=== PATIENT | male | born 1955 | race Caucasian/White ===

== ENCOUNTER → 2016-09-12 | Outpatient (CLI) | payer BC, OTHER ==
[~2016-09-12] MED LIST: MAGN296S PO; OMEP20TA2 PO; SMTR50T PO
--- NOTE | 2016-09-12 13:55 | Diagnostic Imaging Report ---
Ultrasound of the scrotum. INDICATION: Left scrotal pain. FINDINGS: The right testicle is 4.2 x 2.5 x 2.7 cm. The left testicle is 4 x 2.0 x 3 cm. Both testicles demonstrate homogeneous echotexture with no focal mass. There are arterial and venous waveforms demonstrated in both testicles. There is no hydrocele or varicocele. No solid mass. No hernia is identified upon examination with Valsalva maneuver. IMPRESSION: Unremarkable exam. Dictated by: Dictated on workstation # [id number]
== END ==
LOC: RAD 11:19
PROVIDERS: ATTEND Nurse Practitioner Family
DX: N50.812 Left testicular pain (principal)
CPT/HCPCS: 76870

== ENCOUNTER → 2017-01-10 | Outpatient (CLI) | payer OTHER ==
--- NOTE | 2017-01-11 14:19 | ECHOCARDIOGRAPHY REPORT ---
DATE OF SERVICE: REPORT TITLE: Exercise stress echocardiogram report TEST DATE: 01/10/2017. Baseline heart rate is 67. Baseline blood pressure 130/78. Baseline EKG is sinus rhythm with no ischemic changes. In summary, the patient started exercising with a baseline heart rate, blood pressure and EKG mentioned above. He was able to exercise for 11 minutes on standard [place] protocol. With peak exercise level, EKG was showing minimal nondiagnostic changes. Blood pressure was 160/82. During recovery, heart rate and blood pressure returned to baseline. EKG returned to baseline. Echocardiographic images were acquired and reviewed in the parasternal long axis, parasternal short axis, apical four chamber and apical two chamber views. Review of the images were done with the addition of contrast showing normal left ventricular size with normal contractility with no ischemic changes. IN CONCLUSION: 1. Good exercise tolerance, a total of 11 minutes on standard [place] protocol, total of 12.1 METS, achieving 90% of maximum expected heart rate. 2. Appropriate heart rate and blood pressure response to exercise, returned to baseline during recovery. 3. Minimal nondiagnostic EKG changes with exercise returned to baseline during recovery. 4. Normal echocardiographic images at rest and with peak stress level with no ischemic changes. 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
== END ==
LOC: CARD 11:35
PROVIDERS: ATTEND Internal Medicine Cardiovascular Disease
DX: R00.2 Palpitations (principal); R06.02 Shortness of breath; R00.0 Tachycardia, unspecified; R42 Dizziness and giddiness
CPT/HCPCS: 93306

== ENCOUNTER 2017-02-13 15:25 | Outpatient (CLI) | payer OTHER | END 2017-02-13 15:55 | disposition home or self-care (01) | LOC: SLEEP 15:25 | PROVIDERS: ATTEND Internal Medicine Cardiovascular Disease | DX: G47.33 Obstructive sleep apnea (adult) (pediatric) (principal); I10 Essential (primary) hypertension; I49.9 Cardiac arrhythmia, unspecified ==

== ENCOUNTER → 2017-08-27 | Outpatient (CLI) | payer OTHER ==
--- NOTE | 2017-08-27 18:25 | Diagnostic Imaging Report ---
INDICATION: Heel pain COMPARISON: None FINDINGS: 3 views of the right foot are obtained. No acute fracture, malalignment or osseous destructive process is seen. There is some mild degenerative change of the first MTP joint. There is minimal plantar calcaneal spurring. IMPRESSION: Mild degenerative changes of the first MTP joint and minimal plantar calcaneal spurring. No acute osseous abnormality is demonstrated. Dictated by: Dictated on workstation # [id number]
== END ==
LOC: RAD 16:19
DX: M19.071 Primary osteoarthritis, right ankle and foot (principal)
CPT/HCPCS: 73630

== ENCOUNTER 2017-12-05 11:57 | Outpatient (CLI) | payer OTHER ==
[~2017-12-05] VITALS: Ht 180.3 cm; Wt 120.7 kg
[2017-12-05] MEDS ORDERED: SUMA25TA4 PO (12:06)
== END 2017-12-05 12:07 | disposition home or self-care (01) ==
LOC: PREOP 11:57
PROVIDERS: ATTEND Surgery
DX: Z01.818 Encounter for other preprocedural examination (principal)

== ENCOUNTER 2017-12-07 11:50 | Day surgery (SDC) | payer OTHER ==
[~2017-12-07 11:50] MED LIST changes: +SUMA25TA4 PO
[2017-12-07 11:55] VITALS: BP 137/82
--- OUTSIDE RECORDS SUMMARY | 2017-12-07 11:56 | XMS REPORT | Continuity of Care Document ---
Demographics Preferred Language Unknown Marital Status Unknown Denominational Affiliation Unknown Race Unknown Ethnic Group Unknown Author Author [facility] Address Unknown Phone Unavailable Allergies Active Description Code Type Severity Reaction Onset Reported/Identified Relationship to Patient Clinical Status Yes No Known Drug Allergies [id number] Drug Allergy Unknown N/A 06/20/2012 Medications There is no data. Problems Date Dx Coded Attending Type Code Diagnosis Diagnosed By 06/20/2012 Ot 564.00 UNSPEC CONSTIPATION 06/20/2012 Ot 789.09 ABDOMINAL PAIN, OTHER SPECIFIED SITE 07/02/2012 Ot 532.90 DUODENAL ULCER NOS 07/02/2012 Ot 562.10 DIVERTICULOSIS COLON (W/O MENT OF HEMORR 07/02/2012 Ot 564.00 UNSPEC CONSTIPATION 09/13/2016 SREE WERNER CHARGER OPERATOR Ot N50.812 LEFT TESTICULAR PAIN 09/18/2016 SREE WERNER CHARGER OPERATOR Ot N50.812 LEFT TESTICULAR PAIN 10/20/2016 SREE WERNER CHARGER OPERATOR Ot N50.812 LEFT TESTICULAR PAIN 02/12/2017 JIM SANCHEZ MD Ot R00.0 TACHYCARDIA, UNSPECIFIED 02/12/2017 JIM SANCHEZ MD Ot R00.2 PALPITATIONS 02/12/2017 JIM SANCHEZ MD Ot R06.02 SHORTNESS OF BREATH 02/12/2017 JIM SANCHEZ MD Ot R42 DIZZINESS AND GIDDINESS 02/13/2017 JIM SANCHEZ MD Ot G47.33 OBSTRUCTIVE SLEEP APNEA (ADULT) (PEDIATR 02/13/2017 JIM SANCHEZ MD Ot I10 ESSENTIAL (PRIMARY) HYPERTENSION 02/13/2017 JIM SANCHEZ MD Ot I49.9 CARDIAC ARRHYTHMIA, UNSPECIFIED 04/29/2017 Ot 727.61 ROTATOR CUFF RUPTURE 04/29/2017 Ot 789.00 ABDOMINAL PAIN, UNSPECIFIED SITE 04/29/2017 Ot V72.84 EXAM PRE- OPERATIVE NOS 04/29/2017 DAVEY SANTIAGO, MARK Dougherty Ot 721.3 LUMBOSACRAL SPONDYLOSIS 04/29/2017 SREE WERNER CHARGER OPERATOR Ot N50.812 LEFT TESTICULAR PAIN 04/29/2017 DANIEL MD, BASHAR J Ot R00.0 TACHYCARDIA, UNSPECIFIED 04/29/2017 JIM SANCHEZ MD Ot R00.2 PALPITATIONS 04/29/2017 JIM SANCHEZ MD Ot R06.02 SHORTNESS OF BREATH 04/29/2017 JIM SANCHEZ MD Ot R42 DIZZINESS AND GIDDINESS 04/29/2017 Ot 727.61 ROTATOR CUFF RUPTURE 04/29/2017 Ot 789.00 ABDOMINAL PAIN, UNSPECIFIED SITE 04/29/2017 Ot V72.84 EXAM PRE- OPERATIVE NOS 04/29/2017 MARK MARISCAL MD Ot 721.3 LUMBOSACRAL SPONDYLOSIS 04/29/2017 SREE WERNER CHARGER OPERATOR Ot N50.812 LEFT TESTICULAR PAIN 04/29/2017 JIM SANCHEZ MD Ot R00.0 TACHYCARDIA, UNSPECIFIED 04/29/2017 JIM SANCHEZ MD Ot R00.2 PALPITATIONS 04/29/2017 JIM SANCHEZ MD Ot R06.02 SHORTNESS OF BREATH 04/29/2017 JIM SANCHEZ MD Ot R42 DIZZINESS AND GIDDINESS 08/27/2017 Ot 789.00 ABDOMINAL PAIN, UNSPECIFIED SITE 08/27/2017 Ot V72.84 EXAM PRE- OPERATIVE NOS 08/27/2017 MARK MARISCAL MD Ot 721.3 LUMBOSACRAL SPONDYLOSIS 08/27/2017 SREE WERNER CHARGER OPERATOR Ot N50.812 LEFT TESTICULAR PAIN 08/27/2017 JIM SANCHEZ MD Ot R00.0 TACHYCARDIA, UNSPECIFIED 08/27/2017 JIM SANCHEZ MD Ot R00.2 PALPITATIONS 08/27/2017 JIM SANCHEZ MD Ot R06.02 SHORTNESS OF BREATH 08/27/2017 JIM SANCHEZ MD Ot R42 DIZZINESS AND GIDDINESS 08/28/2017 RADHA SANTIAGO, VIKKI Rodriguez Ot M19.071 PRIMARY OSTEOARTHRITIS, RIGHT ANKLE AND 12/05/2017 Ot 789.00 ABDOMINAL PAIN, UNSPECIFIED SITE 12/05/2017 Ot V72.84 EXAM PRE- OPERATIVE NOS 12/05/2017 MARK MARISCAL MD Ot 721.3 LUMBOSACRAL SPONDYLOSIS 12/05/2017 SREE WERNER CHARGER OPERATOR Ot N50.812 LEFT TESTICULAR PAIN 12/05/2017 JIM SANCHEZ MD Ot R00.0 TACHYCARDIA, UNSPECIFIED 12/05/2017 JIM SANCHEZ MD Ot R00.2 PALPITATIONS 12/05/2017 JIM SANCHEZ MD Ot R06.02 SHORTNESS OF BREATH 12/05/2017 JIM SANCHEZ MD Ot R42 DIZZINESS AND GIDDINESS 12/05/2017 VIKKI GARCIA MD Ot M19.071 PRIMARY OSTEOARTHRITIS, RIGHT ANKLE AND 12/05/2017 Ot 789.00 ABDOMINAL PAIN, UNSPECIFIED SITE 12/05/2017 Ot V72.84 EXAM PRE- OPERATIVE NOS 12/05/2017 DAVEY SANTIAGO, MARK Dougherty Ot 721.3 LUMBOSACRAL SPONDYLOSIS 12/05/2017 SREE WERNER APRN Ot N50.812 LEFT TESTICULAR PAIN 12/05/2017 JIM SANCHEZ MD Ot R00.0 TACHYCARDIA, UNSPECIFIED 12/05/2017 JIM SANCHEZ MD Ot R00.2 PALPITATIONS 12/05/2017 JIM SANCHEZ MD Ot R06.02 SHORTNESS OF BREATH 12/05/2017 JIM SANCHEZ MD Ot R42 DIZZINESS AND GIDDINESS 12/05/2017 VIKKI GARCIA MD Ot M19.071 PRIMARY OSTEOARTHRITIS, RIGHT ANKLE AND 12/06/2017 JACQUELYN SANTIAGO, HO Ot Z01.818 ENCOUNTER FOR OTHER PREPROCEDURAL EXAMIN Procedures There is no data. Results There is no data. Encounters ACCT No. Visit Date/Time Discharge Status Pt. Type Provider Facility Loc./Unit Complaint [id number] 05/02/2012 15:52:00 RECURRING [id number] 12/05/2017 11:57:00 12/05/2017 12:07:00 DIS Outpatient HO VALLADARES MD Via [facility] PREOP COLONOSCOPY [id number] 08/27/2017 16:19:00 08/27/2017 23:59:59 CLS Outpatient VIKKI GARCIA MD [facility] RAD RIGHT FOOT PAIN [id number] 02/13/2017 15:25:00 02/13/2017 15:55:00 DIS Outpatient JIM SANCHEZ MD [facility] SLEEP HARPREET [id number] 01/10/2017 11:35:00 01/10/2017 23:59:59 CLS Outpatient JIM SANCHEZ MD [facility] CARD R00.2;R06.02 [id number] 11/28/2016 16:00:00 11/28/2016 23:59:59 CLS Preadmit JIM SANCHEZ MD [facility] CARD DIZZINESS, PALPITATIONS [id number] 09/12/2016 11:19:00 09/12/2016 23:59:59 CLS Outpatient SREE WERNER APRN [facility] RAD LEFT SCROTUM AND LEFT GROIN PAIN [id number] 02/11/2013 13:04:00 02/11/2013 23:59:59 CLS Outpatient MARK MARISCAL MD [facility] RAD LOW BACK PAIN [id number] 12/07/2017 11:50:00 ACT Outpatient HO VALLADARES MD [facility] ENDO SCREENING [id number] 07/02/2012 07:52:00 Document Registration [id number] 06/27/2012 08:52:00 Document Registration [id number] 06/20/2012 10:01:00 Document Registration [id number] 06/17/2012 11:43:00 Document Registration [id number] 02/22/2012 15:49:00 Document Registration
[2017-12-07] MEDS ORDERED: NS IV 500 ML 500 ML IV PRN (12:02)
[2017-12-07] MEDS ORDERED: fentaNYL INJECTION 100 MCG/2 ML AMP IVP ONE (12:15)
[2017-12-07] MEDS ORDERED: MIDAZOLAM 2 MG/2 ML (VERSED) VIAL IVP ONE (12:15)
[2017-12-07] MEDS ORDERED: LIDOCAINE JELLY 2% (XYLOCAINE) 5 ML TUBE MM PRN (12:15)
--- NOTE | 2017-12-07 12:16 | Conscious Sedation/ASA ---
Conscious Sedation Pre-Proced Time Reviewed: 12:10 ASA Class: 2 Airway Mallampati Classification: (nuiqsut appropriate class) I. II. III, IV Lungs Heart ASA score ASA 1: a normal healthy patient ASA 2: a patient with a mild systemic disease (mid diabetes, controlled hypertension, obesity ASA 3: a patient with a severe systemic disease that limits activity (angina , COPD, prior Myocardial infarction) ASA 4: a patient with an incapacitating disease that is a constant threat to life (CHF, renal failure) ASA 5: a moribund patient not expected to survive 24 hrs. (ruptured aneurysm) ASA 6: a declared brain patient whose organs are being harvested. For emergent operations, add the letter E after the classification Grade 2 Sedation Plan: Analgesia, Amnesia, Plan communicated to team members, Discussed options with patient/fam, Discussed risks with patient/fam Note The patient is an appropriate candidate to undergo the planned procedure, sedation, and anesthesia. The patient immediately re-assessed prior to indication. HO VALLADARES MD Dec 07, 2017 12:16 pm
--- NOTE | 2017-12-07 12:17 | Progress Note-Pre Operative ---
Pre-Operative Progress Note H&P Reviewed The H&P was reviewed, patient examined and no changes noted. Date Seen by Provider: Dec 07, 2017 Time Seen by Provider: 12:10 Date H&P Reviewed: Dec 07, 2017 Time H&P Reviewed: 12:10 Pre-Operative Diagnosis: screening colonoscopy HO VALLADARES MD Dec 07, 2017 12:17 pm
[2017-12-07] MEDS ORDERED: HYDROcodone/APAP 5 MG/325 MG (LORTAB) TAB PO PRN (12:30)
[2017-12-07] MEDS ORDERED: ACETAMINOPHEN 325 MG TABLET PO PRN (12:30)
[2017-12-07] MEDS ORDERED: morphine INJ 10 MG/ML 1ML (SYR OR VIAL) IV PRN (12:30)
[2017-12-07] MEDS ORDERED: ONDANSETRON 4 MG/2 ML (SDV) Z0FRAN IV PRN (12:30)
[2017-12-07] MEDS ORDERED: fentaNYL INJECTION 100 MCG/2 ML AMP ONE ×2 (12:44)
[2017-12-07] MEDS ORDERED: MIDAZOLAM 2 MG/2 ML (VERSED) VIAL ONE ×3 (12:44→12:45)
[2017-12-07 13:45] VITALS: BP 123/65
[2017-12-07 14:02] VITALS: BP 117/63
[2017-12-07 14:06] VITALS: BP 117/63
--- NOTE | 2017-12-07 14:18 | Progress Note-Post Operative ---
Post-Operative Progess Note Surgeon (s)/Manager Operating (s) Surgeon HO VALLADARES MD Manager Operating: none Pre-Operative Diagnosis screening colonoscopy Post-Operative Diagnosis chronic stage 1 ext and int hemorrhoids. Procedure & Operative Findings Date of Procedure 12/07/17 Procedure Performed/Findings Colonoscopy Anesthesia Type CS Estimated Blood Loss Estimated blood loss (mL): minimal Specimens/Packing Specimens Removed none HO VALLADARES MD Dec 07, 2017 2:18 pm
--- NOTE | 2017-12-07 18:27 | OPERATIVE REPORT ---
DATE OF SERVICE: 12/07/2017 ATTENDING PRIMARY CARE PHYSICIAN: Dr. Arango. PREOPERATIVE DIAGNOSIS: Screening colonoscopy. POSTOPERATIVE DIAGNOSES: 1. Screening colonoscopy. 2. Mild chronic stage I external and internal hemorrhoids. PROCEDURE: Colonoscopy. SURGEON: Ho Valladares MD ANESTHESIA: Conscious sedation. ESTIMATED BLOOD LOSS: Minimal. FINDINGS: Mild chronic stage I external and internal hemorrhoids, not actively edematous nor inflamed and no bleeding. The remainder of the colon and rectum were normal. Prostate gland was palpable and appeared normal. DISPOSITION: The patient tolerated the procedure well. INDICATIONS: The patient is a 62-year-old male in need of a screening colonoscopy. His last colonoscopy was 10 years ago and he believes that to be normal. He states for the most part he is doing well and does not report any major issues with diarrhea nor constipation as well as no red blood per rectum nor any dark tarry stools. He also does not report any family history of colon cancer. DESCRIPTION OF PROCEDURE: The patient was brought to the operating room, laid supine on the table. After adequate pain sedating medications and conscious sedation anesthesia, a digital rectal examination was performed. Mild chronic stage I external and internal hemorrhoids were identified, which were not actively edematous nor inflamed and no bleeding. Normal sphincter tone was felt and there were no palpable masses. Prostate gland was palpable and appeared normal. The endoscope was then intubated to the anus and rectum and gently insufflated. The endoscope was then advanced through the valves of [place] of the rectum with no polyps or any neoplasms identified. We then proceeded through the sigmoid colon where no diverticulosis identified. The endoscope was then advanced to the descending, transverse, ascending colon and the cecum. These segments were normal. There were no polyps or any neoplasms identified throughout the colon or rectum. The endoscope was then slowly withdrawn while taking a second look and suctioning of residual air with no additional findings. The patient tolerated the procedure well. We will recommend continued medical management with a high-fiber diet with at least 30 grams of fiber per day as well as at least 64 fluid ounces of water daily to promote soft stools on a daily basis. He does not need another colonoscopy for another 10 years. Job ID: [id number] DocumentID: [id number] Dictated Date: 12/07/2017 13:14:13 Insurance Underwriter Date: 12/07/2017 18:26:11 Dictated By: HO VALLADARES MD
== END 2017-12-07 14:10 | disposition home or self-care (01) ==
LOC: ENDO 11:50
PROVIDERS: ATTEND Surgery
DX: Z12.11 Encounter for screening for malignant neoplasm of colon (principal); K64.0 First degree hemorrhoids

== ENCOUNTER 2018-04-07 12:56 | Observation (INO) | payer OTHER ==
[~2018-04-07] VITALS: Ht 188 cm; Wt 119.1 kg
--- OUTSIDE RECORDS SUMMARY | 2018-04-07 13:03 | XMS REPORT | Continuity of Care Document ---
Demographics Preferred Language Unknown Marital Status Unknown Evangelical Affiliation Unknown Race Unknown Ethnic Group Unknown Author Author [facility] Address Unknown Phone Unavailable Allergies Active Description Code Type Severity Reaction Onset Reported/Identified Relationship to Patient Clinical Status Yes No Known Drug Allergies [id number] Drug Allergy Unknown N/A 12/07/2017 Medications There is no data. Problems Date Dx Coded Attending Type Code Diagnosis Diagnosed By 06/20/2012 Ot 564.00 UNSPEC CONSTIPATION 06/20/2012 Ot 789.09 ABDOMINAL PAIN, OTHER SPECIFIED SITE 07/02/2012 Ot 532.90 DUODENAL ULCER NOS 07/02/2012 Ot 562.10 DIVERTICULOSIS COLON (W/O MENT OF HEMORR 07/02/2012 Ot 564.00 UNSPEC CONSTIPATION 09/13/2016 SREE WERNER DIRECTOR EMERGENCY SERVICES Ot N50.812 LEFT TESTICULAR PAIN 09/18/2016 SREE WERNER DIRECTOR EMERGENCY SERVICES Ot N50.812 LEFT TESTICULAR PAIN 10/20/2016 SREE WERNER DIRECTOR EMERGENCY SERVICES Ot N50.812 LEFT TESTICULAR PAIN 02/12/2017 JIM [...] Ot 721.3 LUMBOSACRAL SPONDYLOSIS 04/29/2017 SREE WERNER DIRECTOR EMERGENCY SERVICES Ot N50.812 LEFT TESTICULAR PAIN 04/29/2017 DANIEL [...] Ot 721.3 LUMBOSACRAL SPONDYLOSIS 04/29/2017 SREE WERNER DIRECTOR EMERGENCY SERVICES Ot N50.812 LEFT TESTICULAR PAIN 04/29/2017 JIM SANCHEZ MD Ot R00.0 TACHYCARDIA, UNSPECIFIED 04/29/2017 JIM SANCHEZ MD Ot R00.2 PALPITATIONS 04/29/2017 JIM SANCHEZ MD Ot R06.02 SHORTNESS OF BREATH 04/29/2017 JIM SANCHEZ MD Ot R42 DIZZINESS AND GIDDINESS 08/27/2017 Ot 789.00 ABDOMINAL PAIN, UNSPECIFIED SITE 08/27/2017 Ot V72.84 EXAM PRE- OPERATIVE NOS 08/27/2017 MARK MARISCAL MD Ot 721.3 LUMBOSACRAL SPONDYLOSIS 08/27/2017 SREE WERNER DIRECTOR EMERGENCY SERVICES Ot N50.812 LEFT TESTICULAR PAIN 08/27/2017 JIM [...] Ot 721.3 LUMBOSACRAL SPONDYLOSIS 12/05/2017 SREE WERNER DIRECTOR EMERGENCY SERVICES Ot N50.812 LEFT TESTICULAR PAIN 12/05/2017 JIM [...] M19.071 PRIMARY OSTEOARTHRITIS, RIGHT ANKLE AND 12/06/2017 HO VALLADARES MD Ot Z01.818 ENCOUNTER FOR OTHER PREPROCEDURAL EXAMIN 12/07/2017 HO VALLADARES MD Ot K64.0 FIRST DEGREE HEMORRHOIDS 12/07/2017 HO VALLADARES MD Ot Z12.11 ENCOUNTER FOR SCREENING FOR MALIGNANT NE 12/12/2017 HO VALLADARES MD Ot K64.0 FIRST DEGREE HEMORRHOIDS 12/12/2017 HO VALLADARES MD Ot Z12.11 ENCOUNTER FOR SCREENING FOR MALIGNANT NE 12/12/2017 HO VALLADARES MD Ot K64.0 FIRST DEGREE HEMORRHOIDS 12/12/2017 HO VALLADARES MD Ot Z12.11 ENCOUNTER FOR SCREENING FOR MALIGNANT NE Procedures There is no data. Results There is no data. Encounters ACCT No. Visit Date/Time Discharge Status Pt. Type Provider Facility Loc./Unit Complaint [id number] 05/02/2012 15:52:00 RECURRING [id number] 12/07/2017 11:50:00 12/07/2017 14:10:00 DIS Outpatient HO VALLADARES MD [facility] ENDO SCREENING [id number] 12/05/2017 11:57:00 12/05/2017 12:07:00 DIS Outpatient HO VALLADARES MD [facility] PREOP COLONOSCOPY [id number] 08/27/2017 16:19:00 08/27/2017 23:59:59 CLS Outpatient VIKKI GARCIA MD [facility] RAD RIGHT FOOT PAIN [id number] 02/13/2017 15:25:00 02/13/2017 15:55:00 DIS Outpatient JIM SANCHEZ MD [facility] SLEEP HARPREET [id number] 01/10/2017 11:35:00 01/10/2017 23:59:59 CLS Outpatient JIM SANCHEZ MD [facility] CARD R00.2;R06.02 [id number] 11/28/2016 16:00:00 11/28/2016 23:59:59 CLS Preadmit JIM SANCHEZ MD [facility] CARD DIZZINESS, PALPITATIONS [id number] 09/12/2016 11:19:00 09/12/2016 23:59:59 CLS Outpatient SREE WERNER APRN [facility] RAD LEFT SCROTUM AND LEFT GROIN PAIN [id number] 02/11/2013 13:04:00 02/11/2013 23:59:59 CLS Outpatient MARK MARISCAL MD [facility] RAD LOW BACK PAIN [id number] 07/02/2012 07:52:00 Document Registration [id number] 06/27/2012 08:52:00 Document Registration [id number] 06/20/2012 10:01:00 Document Registration [id number] 06/17/2012 11:43:00 Document Registration [id number] 02/22/2012 15:49:00 Document Registration
--- NOTE | 2018-04-07 13:27 | Diagnostic Imaging Report ---
INDICATION: Dizziness and shortness of breath. FINDINGS: Lungs demonstrate no focal infiltrate or consolidation. There is no effusion. There is no pneumothorax. Heart size and mediastinal contours appear appropriate without evidence of failure. No acute osseous abnormality demonstrated. IMPRESSION: 1. No radiographic evidence of an acute cardiopulmonary process. Dictated by: Dictated on workstation # [id number]
[2018-04-07 13:33] LABS: BASOPHILS % (AUTO) 0 % (0-10); EOSINOPHILS # (AUTO) 0.1 10^3/uL (0.0-0.3); EOSINOPHILS % (AUTO) 1 % (0-10); HEMATOCRIT 47 % (40-54); LYMPHOCYTES # (AUTO) 1.5 X 10^3 (1.0-4.0); LYMPHOCYTES % (AUTO) 16 % (12-44); MEAN CORPUSCULAR HEMOGLOBIN 30 PG (25-34); MEAN CORPUSCULAR HGB CONC 34 G/DL (32-36); MEAN CORPUSCULAR VOLUME 88 FL (80-99); MEAN PLATELET VOLUME 10.7 FL (7.4-10.4); MONOCYTES # (AUTO) 0.8 X 10^3 (0.0-1.0); MONOCYTES % (AUTO) 9 % (0-12); NEUTROPHILS # (AUTO) 6.8 X 10^3 (1.8-7.8); NEUTROPHILS % (AUTO) 74 % (42-75); PLATELET COUNT 208 10^3/uL (130-400); RED BLOOD COUNT 5.37 10^6/uL (4.35-5.85); RED CELL DISTRIBUTION WIDTH 14.6 % (10.0-14.5); WHITE BLOOD COUNT 9.2 10^3/uL (4.3-11.0)
[2018-04-07 13:52] LABS: ALANINE AMINOTRANSFERASE 26 U/L (0-55); ALBUMIN 4.3 GM/DL (3.2-4.5); ALKALINE PHOSPHATASE 74 U/L (40-136); BILIRUBIN,TOTAL 0.6 MG/DL (0.1-1.0); BUN/CREATININE RATIO 14; CALCIUM 9.5 MG/DL (8.5-10.1); CARBON DIOXIDE 19 MMOL/L (21-32); CHLORIDE 108 MMOL/L (98-107); CREATININE SERUM 1.13 MG/DL (0.60-1.30); GFR ESTIMATED > 60; GLUCOSE 101 MG/DL (70-105); POTASSIUM 4.2 MMOL/L (3.6-5.0); SODIUM 140 MMOL/L (135-145); TOTAL PROTEIN 7.1 GM/DL (6.4-8.2)
[2018-04-07] MEDS ORDERED: RECEIVED CONTRAST (Hold Metformin) IV SCH (14:15)
[2018-04-07] MEDS ORDERED: NS 50 ML (IVPB) BAG IV ONE (14:15)
[2018-04-07] MEDS ORDERED: IOHEXOL 350 MG/ML 150 ML (OMNIPAQUE 350) VIAL IV ONE (14:15)
[2018-04-07] MEDS ORDERED: RIVAROXABAN 15 MG TABLET (XARELTO) PO ONE (15:15)
--- NOTE | 2018-04-07 15:32 | ED General ---
General Chief Complaint: Respiratory Problems Stated Complaint: SOA Nursing Triage Note: pt presents to ed from private auto after seeking care at [facility] and being referred to ed. pt reports soa starting this am that is worse with activity or walking. Nursing Sepsis Screen: No Definite Risk Source of Information: Patient Exam Limitations: No Limitations History of Present Illness Date Seen by Provider: Apr 07, 2018 Time Seen by Provider: 12:58 Initial Comments Patient presents to the emergency room as directed by the [facility] area and he was seen there today for complaints of sudden onset of shortness of breath that started around 09:00. He also reported pain in the right calf that started at the same time. The pain in the calf has no gone. He also felt dizzy. He denies any cough, fever, or chest pain. He has no significant health history. He denies any risk factors for PE such as smoking, recent procedures, or recent travel. Allergies and Home Medications Allergies Coded Allergies: No Known Drug Allergies (Verified , 12/07/17) Home Medications Sumatriptan Succinate 25 Mg Tablet, 25 MG PO UD PRN for MIGRAINE, (Reported) Patient Home Medication List Home Medication List Reviewed: Yes Review of Systems Review of Systems Constitutional: no symptoms reported EENTM: no symptoms reported Respiratory: see HPI Cardiovascular: see HPI Gastrointestinal: no symptoms reported Genitourinary: see HPI Musculoskeletal: no symptoms reported Skin: no symptoms reported Psychiatric/Neurological: No Symptoms Reported Hematologic/Lymphatic: No Symptoms Reported Immunological/Allergic: no symptoms reported Past Qyyiekn-Olfuqq-Bufrlp Hx Past Med/Social Hx: Reviewed Nursing Past Med/Soc Hx Patient Social History Alcohol Use: Denies Use Recreational Drug Use: No Smoking Status: Never a Smoker Recent Foreign Travel: No Contact w/Someone Who Travel: No Recent Infectious Disease Expo: No Recent Hopitalizations: No Physical Abuse: No Sexual Abuse: No Mistreated: No Fear: No Immunizations Up To Date Date of Influenza Vaccine: Dec 25, 2011 Seasonal Allergies Seasonal Allergies: Yes Past Medical History Surgeries: No Respiratory: No Cardiac: Yes High Cholesterol Neurological: Yes Headaches /Migraines Genitourinary: No Gastrointestinal: No Musculoskeletal: No Endocrine: No Cancer: No Psychosocial: No Integumentary: No Blood Disorders: No Family Medical History Cancer Physical Exam Vital Signs Vital Signs - First Documented 04/07/18 13:05 Temp 98.2 Pulse 82 Resp 20 B/P (MAP) 151/104 (120) Pulse Ox 95 Capillary Refill : Less Than 3 Seconds Height, Weight, BMI Height: 6'2.00" Weight: 300lbs. 0.0oz. 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, 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85 10^6/uL Hemoglobin 16.0 13.3-17.7 G/DL Hematocrit 47 40-54 % Mean Corpuscular Volume 88 80-99 FL Mean Corpuscular Hemoglobin 30 25-34 PG Mean Corpuscular Hemoglobin Concent 34 32-36 G/DL Red Cell Distribution Width 14.6 H 10.0-14.5 % Platelet Count 208 130-400 10^3/uL Mean Platelet Volume 10.7 H 7.4-10.4 FL Neutrophils (%) (Auto) 74 42-75 % Lymphocytes (%) (Auto) 16 12-44 % Monocytes (%) (Auto) 9 0-12 % Eosinophils (%) (Auto) 1 0-10 % Basophils (%) (Auto) 0 0-10 % Neutrophils # (Auto) 6.8 1.8-7.8 X 10^3 Lymphocytes # (Auto) 1.5 1.0-4.0 X 10^3 Monocytes # (Auto) 0.8 0.0-1.0 X 10^3 Eosinophils # (Auto) 0.1 0.0-0.3 10^3/uL Basophils # (Auto) 0.0 0.0-0.1 10^3/uL D-Dimer 15.38 H 0.00-0.49 UG/ML Sodium Level 140 135-145 MMOL/L Potassium Level 4.2 3.6-5.0 MMOL/L Chloride Level 108 H 98-107 MMOL/L Carbon Dioxide Level 19 L 21-32 MMOL/L Anion Gap 13 5-14 MMOL/L Blood Urea Nitrogen 16 7-18 MG/DL Creatinine 1.13 0.60-1.30 MG/DL Estimat Glomerular Filtration Rate > 60 BUN/Creatinine Ratio 14 Glucose Level 101 70-105 MG/DL Calcium Level 9.5 8.5-10.1 MG/DL Corrected Calcium 9.3 8.5-10.1 MG/DL Total Bilirubin 0.6 0.1-1.0 MG/DL Aspartate Amino Transf (AST/SGOT) 21 5-34 U/L Alanine Aminotransferase (ALT/SGPT) 26 0-55 U/L Alkaline Phosphatase 74 40-136 U/L B-Type Natriuretic Peptide 19.4 <100.0 PG/ML Total Protein 7.1 6.4-8.2 GM/DL Albumin 4.3 3.2-4.5 GM/DL My Orders Orders - MARY LOU CONROY MD Cbc With Automated Diff (04/07/18 12:58) Comprehensive Metabolic Panel (04/07/18 12:58) Saline Lock/Iv-Start (04/07/18 12:58) Monitor-Rhythm Ecg Trace Only (04/07/18 12:58) Chest Pa/Lat (2 View) (04/07/18 12:58) Ct Angio Chest W (04/07/18 14:00) Iohexol Injection (Omnipaque 350 Mg/Ml 1 (04/07/18 14:15) Contrast Received (Contrast Received) (04/07/18 14:15) Ns (Ivpb) (Sodium Chloride 0.9% Ivpb Bag (04/07/18 14:15) Rivaroxaban Tablet (Xarelto Tablet) (04/07/18 15:15) Medications Given in ED Current Medications Medications Dose Ordered Sig/Florencia Route Start Time Stop Time Status Last Admin Dose Admin Iohexol 125 ml ONCE ONCE IV 04/07/18 14:15 04/07/18 14:16 DC 04/07/18 14:52 125 ML Rivaroxaban 15 mg ONCE ONCE PO 04/07/18 15:15 04/07/18 15:16 DC 04/07/18 15:18 15 MG Sodium Chloride 50 ml ONCE ONCE IV 04/07/18 14:15 04/07/18 14:16 DC 04/07/18 14:52 80 ML Vital Signs/I&O 04/07/18 13:05 Temp 98.2 Pulse 82 Resp 20 B/P (MAP) 151/104 (120) Pulse Ox 95 Capillary Refill : Less Than 3 Seconds Blood Pressure Mean: 120 Progress Note : Progress Note Initial screening was performed with chest x-ray, EKG, and labs. D-dimer was found to be markedly elevated. CT angiogram was performed which revealed significant clot burden bilaterally. Case was discussed with Dr. Haywood who suggested starting Xarelto admitting for observation overnight with an echocardiogram in the morning. Xarelto 15 mg was given in the ER. Patient's oxygen saturation remained above 90 percent throughout his ER stay. Exercise pulse oximetry was performed with patient walking back and forth in the hallway. Oxygen saturation stayed in the 92-95 percent range with exertion. ECG Initial ECG Impression Date: Apr 07, 2018 Initial ECG Impression Time: 13:18 Initial ECG Rate: 86 Initial ECG Rhythm: Normal Sinus Comment Normal sinus rhythm with no ST elevation or depression. No abnormal intervals or axis deviation. Diagnostic Imaging Diagonstic Imaging: Xray Plain Films/CT/US/NM/MRI: chest Comments Chest x-ray viewed by me and report reviewed. See report below: NAME: JEANETTE IZQUIERDO [facility] REC#: [id number] PT STATUS: REG ER : 1955 PHYSICIAN: MARY LOU CONROY MD ADMIT DATE: 04/07/18/ER Draft Date of Exam:04/07/18 CHEST PA/LAT (2 VIEW) INDICATION: Dizziness and shortness of breath. FINDINGS: Lungs demonstrate no focal infiltrate or consolidation. There is no effusion. There is no pneumothorax. Heart size and mediastinal contours appear appropriate without evidence of failure. No acute osseous abnormality demonstrated. IMPRESSION: 1. No radiographic evidence of an acute cardiopulmonary process. Dictated on workstation # [id number] Dict: 04/07/18 1314 Trans: 04/07/18 1326 [id number] Interpreted by: MIKO CRENSHAW MD Diagonstic Imaging: CT Plain Films/CT/US/NM/MRI: chest Comments CT angiogram chest viewed by me and report reviewed. Discussed with radiologist. See report below: Departure Communication (Admissions) Time/Spoke to Admitting Phy: 15:20 Dr. Cabrales Time/Spoke to Consulting Phy: 15:10 Dr. Haywood Impression Primary Impression: Bilateral pulmonary embolism Disposition: ADMITTED INPATIENT Condition: Stable Admissions Decision to Admit Reason: Admit from ER (General) Decision to Admit/Date: Apr 07, 2018 Time/Decision to Admit Time: 15:10 Departure-Patient Inst. Referrals: VIKKI GARCIA MD (PCP/Family) Primary Care Physician MARY LOU CONROY MD Apr 07, 2018 15:32
--- NOTE | 2018-04-07 15:36 | Diagnostic Imaging Report ---
INDICATION: Shortness of air starting this morning. Worsening with activity or walking. EXAMINATION: CTA of the chest, 04/07/2018. FINDINGS: There are diffuse pulmonary emboli extending into the right lower lobe branches extending just distal to the right main pulmonary artery. Several right upper lobe branches also contain pulmonary emboli. On this view, small emboli extend into the right middle lobe branches. The right and left main pulmonary arteries are patent. No central emboli appreciated. Scattered emboli seen throughout the lingular branches on the left and multiple left lower lobe branches as well. A small emboli extends into the peripheral vessels in the left upper lobe, laterally and posteriorly. The thoracic aorta demonstrates no evidence for acute abnormality. No adenopathy appreciated in the chest. The lungs demonstrate two small tiny nodules approximately 1-2 mm in size in the superior segment of the left lower lobe, likely of no significance, too small to characterize. In the visualized upper abdominal structures no acute abnormality is appreciated. IMPRESSION: Multifocal pulmonary emboli seen, bilaterally, throughout all lobes, peripheral in nature. No central emboli are appreciated. Other incidental findings as above. Findings will be called to Dr. Irving by Dr. Banerjee 04/07/2018 at 3:20 p.m. Dictated by: Dictated on workstation # [id number]
--- OUTSIDE RECORDS SUMMARY | 2018-04-07 15:36 | XMS REPORT | Continuity of Care Document ---
Demographics Preferred Language Unknown Marital Status Unknown Scientology Affiliation Unknown Race Unknown Ethnic Group Unknown Author Author [facility] Address Unknown Phone Unavailable Allergies Active Description Code Type Severity Reaction Onset Reported/Identified Relationship to Patient Clinical Status Yes No Known Drug Allergies [id number] Drug Allergy Unknown N/A 12/07/2017 Medications There is no data. 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 Ot N50.812 LEFT TESTICULAR PAIN 02/12/2017 [...] Ot 721.3 LUMBOSACRAL SPONDYLOSIS 04/29/2017 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 Ot N50.812 LEFT TESTICULAR PAIN 04/29/2017 [...] Ot 721.3 LUMBOSACRAL SPONDYLOSIS 04/29/2017 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 Ot N50.812 LEFT TESTICULAR PAIN 04/29/2017 [...] Ot 721.3 LUMBOSACRAL SPONDYLOSIS 08/27/2017 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 Results Test Result Range Complete blood count (CBC) with automated white blood cell (WBC) differential - 04/07/18 13:23 Blood leukocytes automated count (number/volume) 9.2 10*3/uL 4.3-11.0 Blood erythrocytes automated count (number/volume) 5.37 10*6/uL 4.35-5.85 Venous blood hemoglobin measurement (mass/volume) 16.0 g/dL 13.3-17.7 Blood hematocrit (volume fraction) 47 % 40-54 Automated erythrocyte mean corpuscular volume 88 [foz_us] 80-99 Automated erythrocyte mean corpuscular hemoglobin (mass per erythrocyte) 30 pg 25-34 Automated erythrocyte mean corpuscular hemoglobin concentration measurement ( mass/volume) 34 g/dL 32-36 Automated erythrocyte distribution width ratio 14.6 % 10.0-14.5 Automated blood platelet count (count/volume) 208 10*3/uL 130-400 Automated blood platelet mean volume measurement 10.7 [foz_us] 7.4-10.4 Automated blood neutrophils/100 leukocytes 74 % 42-75 Automated blood lymphocytes/100 leukocytes 16 % 12-44 Blood monocytes/100 leukocytes 9 % 0-12 Automated blood eosinophils/100 leukocytes 1 % 0-10 Automated blood basophils/100 leukocytes 0 % 0-10 Blood neutrophils automated count (number/volume) 6.8 10*3 1.8-7.8 Blood lymphocytes automated count (number/volume) 1.5 10*3 1.0-4.0 Blood monocytes automated count (number/volume) 0.8 10*3 0.0-1.0 Automated eosinophil count 0.1 10*3/uL 0.0-0.3 Automated blood basophil count (count/volume) 0.0 10*3/uL 0.0-0.1 Fibrin D-dimer FEU measurement in platelet poor plasma (mass/volume) - 13:23 Fibrin D-dimer FEU measurement in platelet poor plasma (mass/volume) 15.38 ug/mL 0.00-0.49 Comprehensive metabolic panel - 04/07/18 13:23 Serum or plasma sodium measurement (moles/volume) 140 mmol/L 135-145 Serum or plasma potassium measurement (moles/volume) 4.2 mmol/L 3.6-5.0 Serum or plasma chloride measurement (moles/volume) 108 mmol/L 98-107 Carbon dioxide 19 mmol/L 21-32 Serum or plasma anion gap determination (moles/volume) 13 mmol/L 5-14 Serum or plasma urea nitrogen measurement (mass/volume) 16 mg/dL 7-18 Serum or plasma creatinine measurement (mass/volume) 1.13 mg/dL 0.60-1.30 Serum or plasma urea nitrogen/creatinine mass ratio 14 NRG Serum or plasma creatinine measurement with calculation of estimated glomerular filtration rate > NRG Serum or plasma glucose measurement (mass/volume) 101 mg/dL 70-105 Serum or plasma calcium measurement (mass/volume) 9.5 mg/dL 8.5-10.1 Serum or plasma total bilirubin measurement (mass/volume) 0.6 mg/dL 0.1-1.0 Serum or plasma alkaline phosphatase measurement (enzymatic activity/volume) 74 U/L 40-136 Serum or plasma aspartate aminotransferase measurement (enzymatic activity/ volume) 21 U/L 5-34 Serum or plasma alanine aminotransferase measurement (enzymatic activity/volume ) 26 U/L 0-55 Serum or plasma protein measurement (mass/volume) 7.1 g/dL 6.4-8.2 Serum or plasma albumin measurement (mass/volume) 4.3 g/dL 3.2-4.5 CALCIUM CORRECTED 9.3 mg/dL 8.5-10.1 Serum or plasma lithium measurement (moles/volume) - 04/07/18 13:23 BNP level 19.4 pg/mL <100.0 Encounters ACCT No. Visit Date/Time Discharge Status Pt. Type Provider Facility Loc./Unit Complaint [id number] 05/02/2012 15:52:00 RECURRING [id number] 12/07/2017 11:50:00 12/07/2017 14:10:00 DIS Outpatient HO VALLADARES MD [facility] ENDO SCREENING [id number] 12/05/2017 11:57:00 12/05/2017 12:07:00 DIS Outpatient HO VALLADARES MD [facility] PREOP COLONOSCOPY [id number] 08/27/2017 16:19:00 08/27/2017 23:59:59 CLS Outpatient VIKKI GARCIA MD [facility] RAD RIGHT FOOT PAIN [id number] 02/13/2017 15:25:00 02/13/2017 15:55:00 DIS Outpatient JIM SANCHEZ MD [facility] SLEEP HARPREET [id number] 01/10/2017 11:35:00 01/10/2017 23:59:59 CLS Outpatient JIM SANCEHZ MD [facility] CARD R00.2;R06.02 [id number] 11/28/2016 16:00:00 11/28/2016 23:59:59 CLS Preadmit JIM SANCHEZ MD [facility] CARD DIZZINESS, PALPITATIONS [id number] 09/12/2016 11:19:00 09/12/2016 23:59:59 CLS Outpatient SREE WERNER APRN [facility] RAD LEFT SCROTUM AND LEFT GROIN PAIN [id number] 02/11/2013 13:04:00 02/11/2013 23:59:59 CLS Outpatient DAVEY SANTIAGO, MARK Dougherty [facility] RAD LOW BACK PAIN [id number] 04/07/2018 13:33:00 Document Registration [id number] 07/02/2012 07:52:00 Document Registration [id number] 06/27/2012 08:52:00 Document Registration [id number] 06/20/2012 10:01:00 Document Registration [id number] 06/17/2012 11:43:00 Document Registration [id number] 02/22/2012 15:49:00 Document Registration
[2018-04-07 16:00] VITALS: BP 150/86
[2018-04-07] MEDS ORDERED: CATHETER FLUSH 10 ML SYR IV PRN (16:00)
--- NOTE | 2018-04-07 16:00 | NUR ---
JEANETTE IZQUIERDO admitted to room 412-1, with an admitting diagnosis of RUPERTO PE, on 04/07/18 from ED via WC, accompanied by AND STAFF. JEANETTE IZQUIERDO introduced to surroundings, call light, bed controls, phone, TV, temperature control, lights, meal times, smoking policy, visitor policy, side rail policy, bathrooms and showers. JEANETTE IZQUIERDO verbalizes understanding that [facility] is not responsible for the loss or damage to any personal effects or valuables that are kept in the patients posession during their hospitalization. The following Patient Care Plans were discussed with the PT: Discharge Planning, PAIN AND PE. JEANETTE IZQUIERDO verbalizes understanding of Interdisciplinary Patient Education. Patient and/or family were informed about the Rapid Response Team and its purpose.
--- NOTE | 2018-04-07 16:12 | NUR ---
DR. BANGURA AT BEDSIDE.
--- NOTE | 2018-04-07 17:48 | History & Physical-Hospitalist ---
History of Present Illness HPI/Chief Complaint 63 yo wm with hx right calf pain for 2-3 days before presentation. No inciting event. today with increased MAYBERRY and SOA with inability to catch breath.D-Dimer 15. CTA shows bilateral pulmonary Emboli. Source: patient Exam Limitations: no limitations Date Seen 04/07/18 Time Seen by a Provider: 16:15 Attending Physician Karolina Cabrales MD PCP Eddie Arango MD Referring Physician Date of Admission Apr 07, 2018 at 15:20 Home Medications & Allergies Home Medications Reviewed patient Home Medication Reconciliation performed by pharmacy medication reconciliations telecommunication tower technician and/or nursing. Patients Allergies have been reviewed. Allergies Allergies Coded Allergies No Known Drug Allergies (Verified04/07/18) Past Ebqccet-Mwvfrg-Npjoso Hx Past Med/Social Hx: Reviewed Nursing Past Med/Soc Hx Patient Social History Marrital Status: Employed/Student: retired Alcohol Use: Denies Use Recreational Drug Use: No Smoking Status: Never a Smoker Physical Abuse Screen: No Sexual Abuse: No Recent Foreign Travel: No Contact w/other who traveled: No Recent Hopitalizations: No Recent Infectious Disease Expo: No Immunizations Up To Date Date of Influenza Vaccine: Dec 24, 2017 Seasonal Allergies Seasonal Allergies: Yes Past Medical History Cardiac: High Cholesterol Neurological: Headaches /Migraines History of Blood Disorders: No Family History Cancer Review of Systems Constitutional: no symptoms reported EENTM: no symptoms reported Respiratory: dyspnea on exertion, short of breath Cardiovascular: no symptoms reported Gastrointestinal: no symptoms reported Genitourinary: no symptoms reported Musculoskeletal: muscle cramps (right calf) Psychiatric/Neurological: No Symptoms Reported Physical Exam Physical Exam Vital Signs Vital Signs - First Documented 04/07/18 04/07/18 13:05 16:00 Temp 98.2 Pulse 82 Resp 20 B/P (MAP) 151/104 (120) Pulse Ox 95 O2 Delivery Room Air Capillary Refill : Less Than 3 SecondsLess Than 3 Seconds Height, Weight, BMI Height: 6'2.00" Weight: 300lbs. 0.0oz. 136.100115ne; 38.5 BMI Method:Estimated General Appearance: No Apparent Distress HEENT: Normal ENT Inspection Neck: Full Range of Motion, Supple Respiratory: Chest Non Tender, Lungs Clear, Normal Breath Sounds, No Accessory Muscle Use, No Respiratory Distress Cardiovascular: Regular Rate, Rhythm, No Gallop, No JVD, No Murmur, Normal Peripheral Pulses Gastrointestinal: Normal Bowel Sounds, No Organomegaly, Non Tender, Soft Rectal: Deferred Back: Normal Inspection Extremity: Normal Capillary Refill, Normal Inspection, Normal Range of Motion, Non Tender, No Calf Tenderness, No Pedal Edema Neurologic/Psychiatric: Alert, Oriented x3, No Motor/Sensory Deficits, Normal Mood/Affect Skin: Normal Color, Warm/Dry Results Results/Procedures Labs Laboratory Tests 04/07/18 13:23 Patient resulted labs reviewed. Imaging: Reviewed Imaging Films, Reviewed Imaging Report Assessment/Plan Admission Diagnosis Pulmonary emboli obesity Admission Status: Observation Diagnosis/Problems Diagnosis/Problems (1) Bilateral pulmonary embolism Status: Acute (2) Obesity (BMI 30-39.9) Status: Chronic Clinical Quality Measures DVT/VTE Risk/Contraindication: Risk Factor Score Per Nursin RFS Level Per Nursing on Admit: 4+=Very High Copy Copies To 1: EDDIE ARANGO MD, KATHLEEN M MD Apr 07, 2018 17:48
[2018-04-07 20:00] VITALS: BP 132/85
[2018-04-07] MEDS: CATHETER FLUSH 10 ML SYR IV SCH (22:01)
[2018-04-08 00:05] VITALS: BP 117/70
[2018-04-08 04:02] VITALS: BP 127/81
[2018-04-08] MEDS: CATHETER FLUSH 10 ML SYR IV SCH (06:03)
[2018-04-08] MEDS ORDERED: RIVAROXABAN 15 MG TABLET (XARELTO) PO SCH (07:00)
[2018-04-08 08:00] VITALS: BP 145/96
[2018-04-08] MEDS ORDERED: FISH1CAP15 PO (10:56)
[2018-04-08] MEDS ORDERED: MULT-633 PO (10:56)
[2018-04-08] MEDS ORDERED: NIAC500T24 PO (10:56)
[2018-04-08] MEDS ORDERED: SUMA100T2 PO (10:56)
[2018-04-08] MEDS ORDERED: PANT40TA2 PO (11:00)
--- NOTE | 2018-04-08 11:00 | NUR ---
SPOKE WITH THE PATIENT ABOUT HIS MEDICATIONS. HE LISTED WHAT HE IS TAKING AND I VERIFIED WITH [facility]. [facility]: 03-07-18 IMITREX 100MG #9 09-23-17 PROTONIX 40MG DAILY #30 (STATES HE ONLY TAKES PRN) HE TAKES A MTV DAILY, NIACIN DAILY, AND 2 FISH OIL DAILY OTC.
[2018-04-08] MEDS ORDERED: SUMAtriptan 50 MG (IMITREX) TAB PO PRN (11:30)
--- NOTE | 2018-04-08 12:49 | Progress Note-Hospitalist ---
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 He was admitted after he arrived at the emergency room yesterday afternoon complaining of shortness of breath. He had had right calf pain for a couple of days prior to that. CT angiography showed significant bilateral pulmonary emboli greater on the right. He has not exhibited any hypoxia and does not require O2 supplementation. There is no previous history of phlebitis or PE. Given this he would be eligible for discharge however for completeness he should have bilateral lower extremity venous Doppler studies. His d-dimer was 15+. Physical exam: He is alert and oriented. Lungs are clear to auscultation. CV is regular without murmur. The calves appear equal in size and there is no tenderness to palpation. Impression: Bilateral pulmonary emboli. Plan: Bilateral lower extremity venous Doppler studies. Then the patient may be discharged. Copy Copies To 1: VIKKI GARCIA MD, RODNEY K MD Apr 08, 2018 12:49
[2018-04-08] MEDS ORDERED: RIVA15TA PO (13:00)
--- NOTE | 2018-04-08 13:02 | Discharge Instructions ---
Discharge Instructions Patient Instructions Patient Instructions: You should be off work the remainder of this week. See your provider in 7-10 days. Report any evidence of unusual bleeding or excessive bruising. You should expect 3-6 months of anticoagulation. At that point your provider well determine whether additional time is required Activity & Diet Discharge Diet: No Restrictions MARK MARISCAL MD Apr 08, 2018 13:02
--- NOTE | 2018-04-08 13:04 | Discharge Instructions ---
Copy Copies To 1: VIKKI GARCIA MD, RODNEY K MD Apr 08, 2018 13:04
--- NOTE | 2018-04-08 13:30 | NUR ---
DR MARISCAL NOTIFIED OF DOPPLER RESULTS.
--- NOTE | 2018-04-08 13:50 | Diagnostic Imaging Report ---
PROCEDURE: US Venous Lower Ext Quinn. TECHNIQUE: Multiple Real-time grayscale images were obtained over the lower extremities in various projections bilaterally. Additional duplex Doppler and color Doppler images were also obtained. INDICATION: Pulmonary emboli. FINDINGS: Both common femoral, superficial femoral, and popliteal veins demonstrate normal compressibility with normal response to augmentation and Valsalva. No thrombus is seen. There does appear to be thrombus identified in the posterior tibial veins bilaterally in the upper, mid, and lower portions. No fluid collections are seen. IMPRESSION: No evidence of right or left femoropopliteal DVT. There is thrombus identified in the posterior tibial veins in the calves bilaterally. Dictated by: Dictated on workstation # [id number]
== END 2018-04-08 13:00 | disposition home or self-care (01) ==
LOC: EDUNIT# 12:56 → ER 12:57 → UNDOADMOB 15:20 → 4TH 15:20 → UNDODISOB 04-08 14:30
PROVIDERS: ADMIT Internal Medicine; ATTEND Internal Medicine
DX: I26.99 Other pulmonary embolism without acute cor pulmonale (principal); I82.443 Acute embolism and thrombosis of tibial vein, bilateral; E78.00 Pure hypercholesterolemia, unspecified; E66.9 Obesity, unspecified; Z68.38 Body mass index [BMI] 38.0-38.9, adult
CPT/HCPCS: 36415; 71046; 71275; 80053; 81240; 81241; 83880; 85025; 85379; 93005; 93041; 93306; 93970; G0378

== ENCOUNTER → 2019-06-13 | Outpatient (CLI) | payer OTHER ==
[~2019-06-13] MED LIST changes: +FISH1CAP15 PO; +MULT-633 PO; +NIAC500T24 PO; +PANT40TA2 PO; +RIVA15TA2 PO; +SUMA100T2 PO
--- NOTE | 2019-06-13 16:40 | Diagnostic Imaging Report ---
Exam: MRI thoracic spine without contrast. Date: June 13, 2019. Indication: 64-year-old male, back pain. Right lower rib pain. Comparison: CT chest April 07, 2018. Technique: Noncontrast MRI sequences of the thoracic spine were obtained. Findings: There is no evidence of a diffuse marrow infiltrating or replacing process. There is no identified focal concerning bone lesion. There is no compression deformity or other fracture. The thoracic disc heights are well preserved. There is no identified sizable thoracic disc protrusion or extrusion. There is no spinal stenosis at the thoracic spine levels. There is no identified abnormal signal in the thoracic spinal cord. Impression: Unremarkable MRI evaluation of the thoracic spine. Dictated by: Dictated on workstation # [id number]
== END ==
LOC: RAD 12:54
PROVIDERS: ATTEND Nurse Practitioner Family
DX: M54.14 Radiculopathy, thoracic region (principal)
CPT/HCPCS: 72146

== ENCOUNTER 2020-02-17 13:08 | Inpatient (IN) | payer OTHER ==
[~2020-02-17] VITALS: Ht 180.3 cm; Wt 132.3 kg
[2020-02-17 14:19] VITALS: BP 123/73
[2020-02-17 14:28] VITALS: BP 123/73
[2020-02-17] MEDS ORDERED: ONDANSETRON 4 MG (ZOFRAN) ORAL DISSOLVE TAB PO PRN (15:15)
[2020-02-17] MEDS ORDERED: diphenhydrAMINE 25 MG TAB (BENADRYL) PO PRN (15:15)
[2020-02-17] MEDS ORDERED: ANTACID SUSP 30 ML UDC (MYLANTA) PO PRN (15:15)
[2020-02-17] MEDS ORDERED: ACETAMINOPHEN 325 MG TABLET PO PRN (15:15)
[2020-02-17] MEDS ORDERED: ONDANSETRON 4 MG/2 ML (SDV) Z0FRAN IV PRN (15:15)
[2020-02-17] MEDS ORDERED: MELATONIN 3 MG TABLET PO PRN (15:15)
[2020-02-17] MEDS ORDERED: polyethylene glycoL POWDER 17 GM (MIRALAX) PACK PO PRN (15:15)
[2020-02-17] MEDS ORDERED: BISACODYL 10 MG SUPP (DULCOLAX) PR PRN (15:15)
[2020-02-17] MEDS ORDERED: ENOXAPARIN 40 MG/0.4 ML (LOVENOX) SYR SC SCH (15:15)
[2020-02-17] MEDS ORDERED: OSELTAMIVIR 75 MG (TAMIFLU) CAPSULE PO ONE (15:15)
[2020-02-17] MEDS ORDERED: APIX5TAB PO (15:56)
--- NOTE | 2020-02-17 15:57 | NUR ---
SPOKE WITH PT (CALLED HIS ROOM PHONE) AND CALLED [facility] TO COMPLETE THE MED REC FILL DATES FROM [facility]: 07-07-2019 PROTONIX 40MG #30 12-21-2019 IMITREX 100MG #9 12-23-2019 ELIQUIS 5MG #180/90DS OTC MEDS: FISH OIL NIACIN MTV
[2020-02-17 16:00] VITALS: BP_SYST 123; BP_SYST 154; BP_DIAS 68; BP_DIAS 69
[2020-02-17] MEDS: inSUlin ASPART (NovoLOG) 1 UNIT/0.01 ML (CHARGE PER UNIT) SC SCH ×2 (16:36→20:40)
[2020-02-17] MEDS: SUMAtriptan 50 MG (IMITREX) TAB PO PRN (18:22)
[2020-02-17 19:42] VITALS: BP 119/81
[2020-02-17] MEDS: OSELTAMIVIR 75 MG (TAMIFLU) CAPSULE PO SCH (20:41)
--- NOTE | 2020-02-17 21:06 | History & Physical-Hospitalist ---
History of Present Illness HPI/Chief Complaint Avila Skinner is a 65 year old male with PMH morbid obesity, pulmonary embolism, who presented as a direct admission from Urgent Care with acute respiratory failure due to COVID-19 and influenza B. His main complaint is body aches. He denies shortness of breath. He has a cough. He is having fevers. He reports headaches. He report anorexia. He has been feeling weak. He has been nauseous. He denies chest pain. He denies leg swelling. He has been compliant with his medications. He has had no known COVID exposures, but says he went golfing with his brother in law and since then they have both gotten sick. Source: patient Exam Limitations: no limitations Date Seen 02/17/20 Time Seen by a Provider: 17:25 Attending Physician Robyn Barrera MD PCP Eddie Arango MD Referring Physician Date of Admission Feb 17, 2020 at 14:00 Home Medications & Allergies Home Medications Reviewed patient Home Medication Reconciliation performed by pharmacy medication reconciliations optical technician and/or nursing. Patients Allergies have been reviewed. Allergies Allergies Coded Allergies No Known Drug Allergies (Verified04/07/18) Past Yhybvlx-Yaucyx-Khnjkm Hx Past Med/Social Hx: Reviewed Nursing Past Med/Soc Hx Patient Social History Alcohol Use: Denies Use Recreational Drug Use: No Smoking Status: Never a Smoker Physical Abuse Screen: No Sexual Abuse: No Recent Foreign Travel: No Contact w/other who traveled: No Recent Hopitalizations: No Recent Infectious Disease Expo: No Immunizations Up To Date Pediatric: No Date of Influenza Vaccine: Jan 08, 2020 Seasonal Allergies Seasonal Allergies: Yes (Hayufever) Past Medical History Cardiac: High Cholesterol Neurological: Headaches /Migraines History of Blood Disorders: No Family History FH: bladder cancer Cancer Review of Systems Constitutional: fever, weakness EENTM: no symptoms reported Respiratory: cough, short of breath Cardiovascular: no symptoms reported Gastrointestinal: nausea Genitourinary: no symptoms reported Musculoskeletal: muscle pain Skin: no symptoms reported Psychiatric/Neurological: No Symptoms Reported Physical Exam Physical Exam Vital Signs Vital Signs - First Documented 02/17/20 02/17/20 14:19 16:00 Temp 36.0 Pulse 101 Resp 20 B/P (MAP) 123/73 Pulse Ox 97 O2 Delivery Nasal Cannula O2 Flow Rate 2.00 Capillary Refill : Height, Weight, BMI Height: 6'2.00" Weight: 262lbs. 9.0oz. 119.054027nn; 40.69 BMI Method:Estimated General Appearance: No Apparent Distress, Obese HEENT: PERRL/EOMI, Pharynx Normal Neck: Normal Inspection, Supple Respiratory: Lungs Clear, Normal Breath Sounds, No Respiratory Distress Cardiovascular: Regular Rate, Rhythm, No Edema, No Murmur Gastrointestinal: Normal Bowel Sounds, Non Tender, Soft Extremity: Normal Inspection, Non Tender, No Pedal Edema Neurologic/Psychiatric: Alert, Oriented x3, No Motor/Sensory Deficits, Normal Mood/Affect Skin: Normal Color, Warm/Dry Results Results/Procedures Labs Patient resulted labs reviewed. Assessment/Plan Admission Diagnosis Acute respiratory failure due to COVID-19 Admission Status: Inpatient Order (span 2 midnights) Reason for Inpatient Admission: Respiratory failrue requriing supplemental oxygen Assessment and Plan Acute respiratory failure due to COVID-19 Influenza B History of PE COVID-19 PCR and Influenza B positive at Urgent Care Symptoms started ~1 week ago Requiring supplemental oxygen to maintain oxygen saturations >90% Procalcitonin normal, antibiotics not indicated at this time Continue Eliquis with history of pulmonary embolism Begin Decadron Discussed Remdesivir, patient defers at this time Discussed convalescent plasma, EUA/risk/benefits and patient agrees Begin Tamiflu Morbid obesity Clinically significant, no acute management needs DVT Prophylaxis: already receiving therapeutic anticoagulation Diagnosis/Problems Diagnosis/Problems (1) Acute respiratory failure due to COVID-19 Status: Acute (2) Influenza B Status: Acute (3) History of pulmonary embolism Status: Chronic (4) Morbid obesity Status: Chronic Clinical Quality Measures DVT/VTE Risk/Contraindication: Risk Factor Score Per Nursin RFS Level Per Nursing on Admit: 2=Moderate ROBYN BARRERA MD Feb 17, 2020 21:06
[2020-02-17] MEDS: SENNOSIDES 8.6 MG (SENOKOT) TAB PO SCH (21:10)
[2020-02-17] MEDS: DOCUSATE SODIUM 100 MG (COLACE) CAP PO SCH (21:10)
[2020-02-17] MEDS: APIXABAN 5 MG (ELIQUIS) TABLET PO SCH (22:08)
--- NOTE | 2020-02-17 22:17 | NUR ---
LAB CALLED INFORMED THIS TRY ON BASTER OUT OF CONVALESCENT PLASMA AT THIS TIME. WILL BE TOMORROW.
[2020-02-18] VITALS (9 sets, daily range): BP systolic 104–136; BP diastolic 64–81
[2020-02-18] MEDS: inSUlin ASPART (NovoLOG) 1 UNIT/0.01 ML (CHARGE PER UNIT) SC SCH ×4 (05:43→21:00)
[2020-02-18] MEDS: dexAMETHasone 6 MG TAB (DECADRON) PO SCH (05:43)
[2020-02-18 06:16] LABS: BASOPHILS % (AUTO) 0 % (0-10); EOSINOPHILS % (AUTO) 0 % (0-10); HEMATOCRIT 47 % (40-54); HEMOGLOBIN 15.6 g/dL (13.3-17.7); LYMPHOCYTES # (AUTO) 0.9 10^3/uL (1.0-4.0); LYMPHOCYTES % (AUTO) 16 % (12-44); MEAN CORPUSCULAR HEMOGLOBIN 30 pg (25-34); MEAN CORPUSCULAR HGB CONC 33 g/dL (32-36); MEAN CORPUSCULAR VOLUME 90 fL (80-99); MEAN PLATELET VOLUME 10.8 fL (9.0-12.2); MONOCYTES # (AUTO) 0.3 10^3/uL (0.0-1.0); MONOCYTES % (AUTO) 6 % (0-12); NEUTROPHILS # (AUTO) 4.3 10^3/uL (1.8-7.8); NEUTROPHILS % (AUTO) 78 % (42-75); PLATELET COUNT 204 10^3/uL (130-400); WHITE BLOOD COUNT 5.6 10^3/uL (4.3-11.0)
[2020-02-18 06:25] LABS: CHLORIDE 101 MMOL/L (98-107); POTASSIUM 4.5 MMOL/L (3.6-5.0); SODIUM 136 MMOL/L (135-145)
[2020-02-18 06:26] LABS: CALCIUM 8.4 MG/DL (8.5-10.1)
[2020-02-18 06:27] LABS: GLUCOSE 142 MG/DL (70-105)
[2020-02-18 06:29] LABS: BILIRUBIN,TOTAL 0.5 MG/DL (0.1-1.0); CARBON DIOXIDE 23 MMOL/L (21-32)
[2020-02-18 06:31] LABS: ALKALINE PHOSPHATASE 60 U/L (40-136); CREATININE SERUM 1.08 MG/DL (0.60-1.30); GFR ESTIMATED > 60
[2020-02-18 06:32] LABS: BUN/CREATININE RATIO 16
[2020-02-18 06:34] LABS: ALANINE AMINOTRANSFERASE 39 U/L (0-55)
[2020-02-18] MEDS: OSELTAMIVIR 75 MG (TAMIFLU) CAPSULE PO SCH ×2 (08:50→20:10)
[2020-02-18] MEDS: DOCUSATE SODIUM 100 MG (COLACE) CAP PO SCH ×2 (08:50→20:10)
[2020-02-18] MEDS: SENNOSIDES 8.6 MG (SENOKOT) TAB PO SCH ×2 (08:51→20:10)
[2020-02-18] MEDS: APIXABAN 5 MG (ELIQUIS) TABLET PO SCH ×3 (08:51→20:11)
--- NOTE | 2020-02-18 13:22 | NUR ---
"RD ASSESSMENT PMHx: hypercholesterolemia; CC - COVID-19+; FluB+ PT INTERACTION: Note pt is currently in COVID isolation, per chart review. Note all diet information for nutrition assessment is per Nasim RN, or per chart review. Nasim states current appetite appears okay, and that the pt ate all of his breakfast. Note no meals have been recorded, per chart review. Nasim states no issues with nausea, vomiting, constipation, or diarrhea he is aware of. Note no BM has been recorded, and pt currently on bowel regimen of colace BID, and senna BID, per chart review. Note unable to determine recent wt hx, per chart review. ABNORMAL NUTRITION-RELATED LAB VALUES LOW: Ca 8.4; HIGH: glu 142 Est. kcal needs: 6148-9302 kcal | 15-18 kcal/kg Est. Pro needs: 106-132 g Pro | 0.8-1.0 g Pro/kg PES STATEMENT: Inadequate oral intake (NI-2.1) related to loss of appetite as evidenced by chart review, and communication with RN. INTERVENTION: Continue with current diet order of Regular diet. Continue with current supplementation order of Ensure Enlive with meals TID. Provides 350 kcal and 20 g Pro per serving. Would recommend DC supplementation order when avg PO intake 75% or greater. Will continue to follow and reassess as pt needs, intake, and status change. Clarice Ram MS RD LD [phone] cell"
--- NOTE | 2020-02-18 16:55 | NUR ---
pt was put on room air for 30 minutes. pt saturation was at 96% on room air. pt is was walked for 6 minutes and pt was never went below 94%. pt does not need o2 Addendum: 02/18/20 at 1656 by GIGI BREWSTER RT Amended: Links added.
--- NOTE | 2020-02-18 16:55 | Progress Note - Hospitalist ---
Subjective HPI/CC On Admission Date Seen by Provider: Feb 18, 2020 Time Seen by Provider: 15:10 Avila Skinner is a 65 year old male with PMH morbid obesity, pulmonary embolism, who presented as a direct admission from Urgent Care with acute respiratory failure due to COVID-19 and influenza B. His main complaint is body aches. He de nies shortness of breath. He has a cough. He is having fevers. He reports headaches. He report anorexia. He has been feeling weak. He has been nauseous. He denies chest pain. He denies leg swelling. He has been compliant with his medications. He has had no known COVID exposures, but says he went golfing with his brother in law and since then they have both gotten sick. Subjective/Events-last exam He is feeling better. He denies shortness of breath. He is still having a cou gh. He denies fevers. He has been eating and drinking. He has been up and moving around. Objective Exam Vital Signs Vital Signs Date Time Temp Pulse Resp B/P (MAP) Pulse Ox O2 Delivery O2 Flow Rate FiO2 02/18/20 16:34 37.1 85 17 127/71 (89) 96 Nasal Cannula 2.00 Capillary Refill : Less Than 3 SecondsLess Than 3 Seconds General Appearance: No Apparent Distress, Obese Respiratory: Lungs Clear, Normal Breath Sounds, No Respiratory Distress Cardiovascular: Regular Rate, Rhythm, No Edema, No Murmur Gastrointestinal: Normal Bowel Sounds, Non Tender, Soft Extremity: Normal Inspection, Non Tender, No Pedal Edema Neurologic/Psychiatric: Alert, Oriented x3, No Motor/Sensory Deficits, Normal Mood/Affect Skin: Normal Color, Warm/Dry Results/Procedures Lab Laboratory Tests 02/18/20 05:50 Patient resulted labs reviewed. Imaging: Reviewed Imaging Report Assessment/Plan Assessment and Plan Assess & Plan/Chief Complaint Acute respiratory failure due to COVID-19 Influenza B History of PE Continue Eliquis Decadron Remdesivir deferred Convalescent plasma ordered Tamiflu Oxygen study revealed no oxygen need Morbid obesity Clinically significant, no acute management needs DVT Prophylaxis: already receiving therapeutic anticoagulation Diagnosis/Problems Diagnosis/Problems (1) Acute respiratory failure due to COVID-19 Status: Acute (2) Influenza B Status: Acute (3) History of pulmonary embolism Status: Chronic (4) Morbid obesity Status: Chronic Clinical Quality Measures DVT/VTE Risk/Contraindication: Risk Factor Score Per Nursin RFS Level Per Nursing on Admit: 2=Moderate BRENDA BARRERA MD Feb 18, 2020 16:55
[2020-02-18] MEDS ORDERED: NS IV 500 ML 500 ML ONE (17:14)
[2020-02-18] MEDS ORDERED: OSLT75C PO (17:16)
[2020-02-19 00:37] VITALS: BP 110/84
[2020-02-19 04:12] VITALS: BP 128/82
[2020-02-19 05:34] LABS: BASOPHILS % (AUTO) 0 % (0-10); EOSINOPHILS % (AUTO) 0 % (0-10); HEMATOCRIT 46 % (40-54); HEMOGLOBIN 14.8 g/dL (13.3-17.7); LYMPHOCYTES # (AUTO) 1.4 10^3/uL (1.0-4.0); LYMPHOCYTES % (AUTO) 15 % (12-44); MEAN CORPUSCULAR HEMOGLOBIN 30 pg (25-34); MEAN CORPUSCULAR HGB CONC 33 g/dL (32-36); MEAN CORPUSCULAR VOLUME 91 fL (80-99); MEAN PLATELET VOLUME 10.6 fL (9.0-12.2); MONOCYTES # (AUTO) 0.7 10^3/uL (0.0-1.0); MONOCYTES % (AUTO) 7 % (0-12); NEUTROPHILS # (AUTO) 7.6 10^3/uL (1.8-7.8); NEUTROPHILS % (AUTO) 78 % (42-75); PLATELET COUNT 225 10^3/uL (130-400); WHITE BLOOD COUNT 9.8 10^3/uL (4.3-11.0)
[2020-02-19 06:11] LABS: ALBUMIN 3.9 GM/DL (3.2-4.5); POTASSIUM 4.1 MMOL/L (3.6-5.0)
[2020-02-19 06:12] LABS: CALCIUM 8.3 MG/DL (8.5-10.1)
[2020-02-19 06:14] LABS: TOTAL PROTEIN 6.8 GM/DL (6.4-8.2)
[2020-02-19 06:15] LABS: BILIRUBIN,TOTAL 0.6 MG/DL (0.1-1.0)
[2020-02-19] MEDS: inSUlin ASPART (NovoLOG) 1 UNIT/0.01 ML (CHARGE PER UNIT) SC SCH (06:15)
[2020-02-19 06:17] LABS: CREATININE SERUM 1.27 MG/DL (0.60-1.30)
[2020-02-19] MEDS: dexAMETHasone 6 MG TAB (DECADRON) PO SCH (06:41)
[2020-02-19] MEDS: SUMAtriptan 50 MG (IMITREX) TAB PO PRN (06:48)
[2020-02-19 08:00] VITALS: BP 150/64
[2020-02-19] MEDS ORDERED: RELABEL FOR HOME USE MC SCH (08:45)
[2020-02-19] MEDS: SENNOSIDES 8.6 MG (SENOKOT) TAB PO SCH (09:37)
[2020-02-19] MEDS: OSELTAMIVIR 75 MG (TAMIFLU) CAPSULE PO SCH (09:37)
[2020-02-19] MEDS: APIXABAN 5 MG (ELIQUIS) TABLET PO SCH (09:37)
[2020-02-19] MEDS: DOCUSATE SODIUM 100 MG (COLACE) CAP PO SCH (09:37)
--- NOTE | 2020-02-19 13:06 | Discharge Summary ---
Discharge Summary Hospital Course Was the Problem List Reviewed?: Yes Problems/Dx: (1) Acute respiratory failure due to COVID-19 Status: Acute (2) Influenza B Status: Acute (3) History of pulmonary embolism Status: Chronic (4) Morbid obesity Status: Chronic Hospital Course Date of Admission: Feb 17, 2020 at 14:00 Admission Diagnosis : acute respiratory failure due to COVID-19 and influenza B Family Physician/Provider: Eddie Garcia MD Date of Discharge: 02/19/20 Discharge Diagnosis: acute respiratory failure due to COVID-19 and influenza B Hospital Course: Avila Skinner is a 65-year-old male who was admitted with acute respiratory failure due to COVID-19 and influenza B. He was treated with Decadron and convalescent plasma for COVID-19. He was treated with Tamiflu for influenza. His initial oxygen requirement resolved. A respiratory therapy study was done and he required no supplemental oxygen at the time of discharge. He will complete a course of Tamiflu for influenza. He should follow-up with his primary care physician in a week or two. Labs and Pending Lab Test: Laboratory Tests 02/18/20 15:56: Glucometer 123H 02/18/20 20:15: Glucometer 118H 02/19/20 04:36: White Blood Count 9.8, Red Blood Count 5.00, Hemoglobin 14.8, Hematocrit 46, Mean Corpuscular Volume 91, Mean Corpuscular Hemoglobin 30, Mean Corpuscular Hemoglobin Concent 33, Red Cell Distribution Width 14.8H, Platelet Count 225, M cele Platelet Volume 10.6, Immature Granulocyte % (Auto) 0, Neutrophils (%) (Auto) 78H, Lymphocytes (%) (Auto) 15, Monocytes (%) (Auto) 7, Eosinophils (%) (Auto) 0, Basophils (%) (Auto) 0, Neutrophils # (Auto) 7.6, Lymphocytes # (Auto) 1.4, Monocytes # (Auto) 0.7, Eosinophils # (Auto) 0.0, Basophils # (Auto) 0.0, Immature Granulocyte # (Auto) 0.0, Sodium Level 136, Potassium Level 4.1, Chloride Level 100, Carbon Dioxide Level 23, Anion Gap 13, Blood Urea Nitrogen 22H, Creatinine 1.27, Estimat Glomerular Filtration Rate 57, BUN/Creatinine Ratio 17, Glucose Level 111H, Calcium Level 8.3L, Corrected Calcium 8.4L, Total Bilirubin 0.6, Aspartate Amino Transf (AST/SGOT) 34, Alanine Aminotransferase (ALT/SGPT) 38, Alkaline Phosphatase 55, Total Protein 6.8, Albumin 3.9 Home Meds Active Tamiflu (Oseltamivir Phosphate) 75 Mg Cap 75 Mg PO BID 5 Days Reported Eliquis (Apixaban) 5 Mg Tablet 5 Mg PO BID Protonix (Pantoprazole Sodium) 40 Mg Tablet.dr 40 Mg PO DAILY PRN Daily Value (Multivitamin) 1 Each Tablet 1 Tab PO DAILY Niacin (Niacinamide) 500 Mg Tablet 500 Mg PO DAILY Fish Oil 1,200 mg Fish Oil (Fish Oil/Dha/Epa) 1 Each Capsule 2,400 Mg PO DAILY Imitrex (Sumatriptan Succinate) 100 Mg Tablet 100 Mg PO UD PRN Assessment/Pt Instructions take medications as prescribed. Follow-up with your primary care physician. Return with worsening shortness of breath or if you feel like you're getting worse. Discharge Planning: <30 minutes discharge planning Discharge Instructions Discharge Diet: No Restrictions Pneumonia Vaccine Order Indica: Yes Discharge Physical Examination Vital Signs Vital Signs Date Time Temp Pulse Resp B/P (MAP) Pulse Ox O2 Delivery O2 Flow Rate FiO2 02/19/20 10:15 02/19/20 08:00 Room Air 02/19/20 08:00 37.4 115 18 93 02/18/20 16:54 2.00 Allergies: Coded Allergies: No Known Drug Allergies (Verified , 04/07/18) Copy Copies To 1: EDDIE GARCIA MD Discharge Summary Date of Admission Feb 17, 2020 at 14:00 Date of Discharge Feb 19, 2020 at 10:15 Discharge Date: Feb 19, 2020 Discharge Time: 10:15 Admission Diagnosis Acute respiratory failure due to COVID-19 Discharge Diagnosis Acute respiratory failure due to COVID-19 and Influenza B (1) Acute respiratory failure due to COVID-19 Status: Acute (2) Influenza B Status: Acute (3) History of pulmonary embolism Status: Chronic (4) Morbid obesity Status: Chronic Clinical Quality Measures DVT/VTE Risk/Contraindication: Risk Factor Score Per Nursin RFS Level Per Nursing on Admit: 2=Moderate BRENDA BARRERA MD Feb 19, 2020 13:06
[2020-02-19] MEDS ORDERED: OSELTAMIVIR 75 MG (TAMIFLU) CAPSULE PO SCH (21:00)
== END 2020-02-19 10:15 | disposition home or self-care (01) | DRG 177 ==
LOC: 4TH 14:00
PROVIDERS: ADMIT Internal Medicine; ATTEND Internal Medicine
PROC: XW13325 Transfusion of Convalescent Plasma (Nonautologous) into Peripheral Vein, Percutaneous Approach, New Technology Group 5 (ICD-10-PCS; principal; 2020-02-18)
DX: U07.1 COVID-19 (principal); J96.00 Acute respiratory failure, unspecified whether with hypoxia or hypercapnia; Z68.41 Body mass index [BMI] 40.0-44.9, adult; J10.1 Influenza due to other identified influenza virus with other respiratory manifestations; E66.01 Morbid (severe) obesity due to excess calories; E78.00 Pure hypercholesterolemia, unspecified; Z86.711 Personal history of pulmonary embolism; Z79.01 Long term (current) use of anticoagulants; Z73.0 Burn-out
CPT/HCPCS: 36415; 80053; 82962; 84145; 85025; 85379; 86850; 86900; 86901; 94761

== ENCOUNTER → 2020-03-01 | Outpatient (CLI) | payer OTHER ==
[~2020-03-01] MED LIST changes: +APIX5TAB PO; +OSLT75C PO
--- NOTE | 2020-03-01 11:35 | Diagnostic Imaging Report ---
INDICATION: DYSPNEA AT REST. COVID positive a couple weeks ago. Continued shortness of breath. TECHNIQUE: Two view chest 11:16 AM CORRELATION STUDY: 04/07/2018 FINDINGS: Given difference technique, heart size is borderline enlarged but generally stable. Vasculature may be slightly more prominent. There has been developed scattered somewhat groundglass opacities throughout both lung manley. Additionally, some areas do demonstrate slight nodularity. Slightly greater than right compared to left. Mild to moderately advanced degenerative changes of thoracolumbar spine. IMPRESSION: 1. Development of bilateral pulmonary opacities concerning for multilobar pneumonia. This pattern can be seen with COVID. Some these do have a slightly nodular appearance possibly neoplasm not completely excluded this time. Followup imaging to resolution is recommended. Dictated by: Dictated on workstation # [id number]
== END ==
LOC: RAD 11:08
DX: U07.1 COVID-19 (principal)
CPT/HCPCS: 71046

== ENCOUNTER 2021-03-12 21:46 | Emergency (ER) | payer MEDICARE, OTHER ==
[~2021-03-12] VITALS: Ht 180.3 cm; Wt 136.1 kg
[2021-03-12 21:55] VITALS: BP 153/105
[2021-03-12 22:13] LABS: BASOPHILS # (AUTO) 0.1 10^3/uL (0.0-0.1); BASOPHILS % (AUTO) 1 % (0-10); EOSINOPHILS # (AUTO) 0.4 10^3/uL (0.0-0.3); EOSINOPHILS % (AUTO) 3 % (0-10); HEMATOCRIT 48 % (40-54); HEMOGLOBIN 15.9 g/dL (13.3-17.7); LYMPHOCYTES # (AUTO) 3.7 10^3/uL (1.0-4.0); LYMPHOCYTES % (AUTO) 28 % (12-44); MEAN CORPUSCULAR HEMOGLOBIN 30 pg (25-34); MEAN CORPUSCULAR HGB CONC 33 g/dL (32-36); MEAN CORPUSCULAR VOLUME 90 fL (80-99); MEAN PLATELET VOLUME 10.3 fL (9.0-12.2); MONOCYTES # (AUTO) 0.9 10^3/uL (0.0-1.0); MONOCYTES % (AUTO) 7 % (0-12); NEUTROPHILS # (AUTO) 8.3 10^3/uL (1.8-7.8); NEUTROPHILS % (AUTO) 62 % (42-75); PLATELET COUNT 252 10^3/uL (130-400); WHITE BLOOD COUNT 13.5 10^3/uL (4.3-11.0)
--- NOTE | 2021-03-12 22:28 | ED Respiratory ---
General Chief Complaint: Respiratory Problems Stated Complaint: SOB Nursing Triage Note: Pt arrives via POV from home with c/o SOB on exertion; onset 03/04/21 after receiving Moderna COVID booster. Pt reports hx of blood clots in his legs et lungs; states he was prescribed Eliquis for this two years ago but was taken off of the Eliquis two months ago by Dr. Escalera. Pt reports mild pain to the back of his left calf with flexion. Source: patient History of Present Illness Date Seen by Provider: Mar 12, 2021 Time Seen by Provider: 21:54 Initial Comments PT ARRIVES VIA POV FROM HOME C/O SHORTNESS OF BREATH X 1 WEEK--SYMPTOMS BEGAN 03/04/21 SHORTNESS OF BREATH IS WORSE WITH EXERTION HAS NOT SOUGHT CARE UNTIL TONIGHT SYMPTOMS NO DIFFERENT TONIGHT HAS HAD MILD COUGH NO FEVER NO CHEST PAIN OR PAIN WITH BREATHING NO LOSS OF TASTE OR SMELL NO GI SYMPTOMS NO SWELLING IN LEGS OR FEET, BUT HAS HAD LEFT CALF PAIN X 2-3 WEEKS--THOUGHT IT WAS FROM [employer] PT HAS HISTORY OF BILATERAL P.E.'S AND DVT DX 03/2018, HAD BEEN ON ELIQUIS, BUT WAS DC'D BY DR. ESCALERA 2 MONTHS AGO PT HAD COVID-19 AND FLU B JANUARY OF 2020--SPENT 2 NIGHTS IN HOSPITAL, BUT DID NOT REQUIRE ANY HOME O2 PT HAS RECEIVED MODERNA COVID-19 VACCINES X 3 THIS YEAR--HAD BOOSTER SHOT 03/04/21, AND SHORTNESS OF BREATH STARTED LATER THAT SAME DAY PT HAS ALSO RECEIVED FLU AND PNEUMONIA VACCINES NO RECENT TRAVEL OR PROLONGED SITTING, ETC NO RECENT PROCEDURES/SURGERIES PCP: DR. GARCIA CUSTOMER SERVICE SECURITY OFFICER: DR. ESCALERA Allergies and Home Medications Allergies Coded Allergies: No Known Drug Allergies (Verified , 04/07/18) Patient Home Medication List Home Medication List Reviewed: Yes Apixaban (Eliquis) 5 Mg Tablet, 5 MG PO BID, (Reported) Entered as Reported by: BRIONNA EATON on 02/17/20 1556 Fish Oil/Dha/Epa (Fish Oil 1,200 mg Fish Oil) 1 Each Capsule, 2,400 MG PO DAILY, (Reported) Entered as Reported by: DON BURRIS on 04/08/18 1056 Multivitamin (Daily Value) 1 Each Tablet, 1 TAB PO DAILY, (Reported) Entered as Reported by: DON BURRIS on 04/08/18 1056 Niacinamide (Niacin) 500 Mg Tablet, 500 MG PO DAILY, (Reported) Entered as Reported by: DON BURRIS on 04/08/18 1056 Oseltamivir Phosphate (Tamiflu) 75 Mg Cap, 75 MG PO BID Prescribed by: BRENDA BARRERA on 02/18/20 1716 Pantoprazole Sodium (Protonix) 40 Mg Tablet.dr, 40 MG PO DAILY PRN for HEARTBURN, (Reported) Entered as Reported by: DON BURRIS on 04/08/18 1100 Sumatriptan Succinate (Imitrex) 100 Mg Tablet, 100 MG PO UD PRN for MIGRAINE, (Reported) Entered as Reported by: DON BURRIS on 04/08/18 1056 Review of Systems Review of Systems Constitutional: no symptoms reported EENTM: no symptoms reported Respiratory: see HPI; No cough; dyspnea on exertion, short of breath Cardiovascular: no symptoms reported; No chest pain, No edema, No palpitations, No syncope Gastrointestinal: no symptoms reported Genitourinary: no symptoms reported Musculoskeletal: no symptoms reported Skin: no symptoms reported Psychiatric/Neurological: No Symptoms Reported Hematologic/Lymphatic: See HPI Immunological/Allergic: no symptoms reported Past [id number]-[id number] Hx Patient Social History Tobacco Use?: No Use of E-Cig and/or Vaping dev: No Substance use?: No Alcohol Use?: No Pt feels they are or have been: No Immunizations Up To Date PED Vaccines UTD: No Influenza Vaccine Up-to-Date: Yes; Up-to-Date COVID19 Vaccine Salary Manager: Tyto Seasonal Allergies Seasonal Allergies: Yes (Hayufever) Past Medical History Surgeries: No Respiratory: Yes Pulmonary Embolism Cardiac: Yes Deep Vein Thrombosis, High Cholesterol Neurological: Yes Headaches /Migraines Genitourinary: No Gastrointestinal: Yes Hemorrhoids Musculoskeletal: No Endocrine: Yes (OBESITY) HEENT: No Cancer: No Psychosocial: No Integumentary: No Blood Disorders: No Family Medical History FH: bladder cancer Cancer PAST MEDICAL AND SURGICAL HISTORY: -COLONOSCOPY 11/[address] VALLADARES--HEMORRHOIDS, OTHERWISE NORMAL -03/2018--BILATERAL LEG DVT'S AND BILATERAL P.E.'S--DID NOT REQUIRE HOME O2 -HOSPITALIZED 01/2020 FOR COVID-19 AND INFLUENZA B. DID NOT REQUIRE VENTILATION OR HOME O2. Physical Exam Vital Signs - First Documented Capillary Refill : Less Than 3 Seconds Height: 6'2.00" Weight: 262lbs. 9.0oz. 119.170246in; 41.00 BMI Method:Estimated General Appearance: WD/WN, no apparent distress, obese HEENT: PERRL/EOMI Neck: normal inspection Respiratory: normal breath sounds, no respiratory distress, no accessory muscle use, other (NO COUGH, NO DYSPNEA) Cardiovascular: normal peripheral pulses, regular rate, rhythm, no edema, no JVD, no murmur Gastrointestinal: non tender, soft Extremities: normal range of motion, no pedal edema, normal capillary refill, calf tenderness (MILD LEFT MID CALF TENDERNESS. NO SWELLING. NO CORDING. NO DISCOLORATION. PULSES INTACT AND EQUAL BILATERALLY) Neurologic/Psychiatric: sensitometrist II-XII nml as tested, no motor/sensory deficits, alert, normal mood/affect, oriented x 3 Skin: normal color, warm/dry Focused Exam Lactate Level 03/12/21 22:20: Lactic Acid Level 1.48 Lactic Acid Level Laboratory Tests Test 03/12/21 22:20 Lactic Acid Level 1.48 MMOL/L (0.50-2.00) Progress/Results/Core Measures Suspected Sepsis SIRS Temperature: Pulse: 95 Respiratory Rate: 20 Laboratory Tests 03/12/21 22:00: White Blood Count 13.5H Blood Pressure 153 /105 Mean: 121 03/12/21 22:20: Lactic Acid Level 1.48 Laboratory Tests 03/12/21 22:00: Creatinine 1.26, INR Comment 1.0, Platelet Count 252, Total Bilirubin 0.3 Results/Orders Lab Results Laboratory Tests Test 03/12/21 21:58 03/12/21 22:00 03/12/21 22:20 Range/Units Influenza Type A (RT-PCR) Not Detected Not Detecte Influenza Type B (RT-PCR) Not Detected Not Detecte SARS-CoV-2 RNA (RT-PCR) Not Detected Not Detecte White Blood Count 13.5 H 4.3-11.0 10^3/uL Red Blood Count 5.33 4.30-5.52 10^6/uL Hemoglobin 15.9 13.3-17.7 g/dL Hematocrit 48 40-54 % Mean Corpuscular Volume 90 80-99 fL Mean Corpuscular Hemoglobin 30 25-34 pg Mean Corpuscular Hemoglobin Concent 33 32-36 g/dL Red Cell Distribution Width 14.6 H 10.0-14.5 % Platelet Count 252 130-400 10^3/uL Mean Platelet Volume 10.3 9.0-12.2 fL Immature Granulocyte % (Auto) 0 % Neutrophils (%) (Auto) 62 42-75 % Lymphocytes (%) (Auto) 28 12-44 % Monocytes (%) (Auto) 7 0-12 % Eosinophils (%) (Auto) 3 0-10 % Basophils (%) (Auto) 1 0-10 % Neutrophils # (Auto) 8.3 H 1.8-7.8 10^3/uL Lymphocytes # (Auto) 3.7 1.0-4.0 10^3/uL Monocytes # (Auto) 0.9 0.0-1.0 10^3/uL Eosinophils # (Auto) 0.4 H 0.0-0.3 10^3/uL Basophils # (Auto) 0.1 0.0-0.1 10^3/uL Immature Granulocyte # (Auto) 0.0 0.0-0.1 10^3/uL Erythrocyte Sedimentation Rate 15 0-30 MM/HR Prothrombin Time 13.9 12.2-14.7 SEC INR Comment 1.0 0.8-1.4 Activated Partial Thromboplast Time 31 24-35 SEC D-Dimer 19.27 H 0.00-0.49 UG/ML Sodium Level 141 135-145 MMOL/L Potassium Level 3.8 3.6-5.0 MMOL/L Chloride Level 106 98-107 MMOL/L Carbon Dioxide Level 22 21-32 MMOL/L Anion Gap 13 5-14 MMOL/L Blood Urea Nitrogen 20 H 7-18 MG/DL Creatinine 1.26 0.60-1.30 MG/DL Estimat Glomerular Filtration Rate 57 BUN/Creatinine Ratio 16 Glucose Level 126 H 70-105 MG/DL Calcium Level 9.2 8.5-10.1 MG/DL Corrected Calcium 9.0 8.5-10.1 MG/DL Magnesium Level 2.0 1.6-2.4 MG/DL Total Bilirubin 0.3 0.1-1.0 MG/DL Aspartate Amino Transf (AST/SGOT) 23 5-34 U/L Alanine Aminotransferase (ALT/SGPT) 28 0-55 U/L Alkaline Phosphatase 76 40-136 U/L Total Creatine Kinase 116 30-200 U/L Creatine Kinase MB 1.4 <6.6 NG/ML Myoglobin 62.1 10.0-92.0 NG/ML Troponin I < 0.028 <0.028 NG/ML C-Reactive Protein High Sensitivity 1.72 H 0.00-0.50 MG/DL B-Type Natriuretic Peptide 11.7 <100.0 PG/ML Total Protein 7.5 6.4-8.2 GM/DL Albumin 4.2 3.2-4.5 GM/DL Procalcitonin 0.03 <0.10 NG/ML Lactic Acid Level 1.48 0.50-2.00 MMOL/L Micro Results Microbiology 03/12/21 Blood Culture - Preliminary, Resulted No growth My Orders Orders - MURALI MONREAL DO Monitor-Rhythm Ecg Trace Only (03/12/21 21:54) Chest 1 View, Ap/Pa Only (03/12/21 21:54) Influenza A And B By Pcr (03/12/21 21:54) Covid 19 Inhouse Test (03/12/21 21:54) Bnp Evelina (03/12/21 21:58) Cbc With Automated Diff (03/12/21 21:58) Comprehensive Metabolic Panel (03/12/21 21:58) Creatine Kinase (03/12/21 21:58) Creatine Kinase Mb (03/12/21 21:58) Hs C Reactive Protein (03/12/21 21:58) Fibrin Degradation Products (03/12/21 21:58) Lactic Acid Analyzer (03/12/21 21:58) Magnesium (03/12/21 21:58) Procalcitonin (Pct) (03/12/21 21:58) Protime With Inr (03/12/21 21:58) Partial Thromboplastin Time (03/12/21 21:58) Blood Culture (03/12/21 21:58) Erythrocyte Sedimentation Rate (03/12/21 21:58) Myoglobin Serum (03/12/21 21:58) Troponin I [place] (03/12/21 21:58) Ed Iv/Invasive Line Start (03/12/21 21:58) Ekg Tracing (03/12/21 21:58) O2 (03/12/21 21:58) Vital Signs Adult Sepsis Patie Q15M (03/12/21 21:58) Remove Rings In Anticipation O (03/12/21 21:58) Ct Angio Chest W (03/12/21 22:43) Iohexol Injection (Omnipaque 350 Mg/Ml 1 (03/12/21 23:15) Received Contrast (Hold Metformin- Contr (03/12/21 23:15) Sodium Chloride Flush (Catheter Flush Sy (03/12/21 23:15) Ns (Ivpb) (Sodium Chloride 0.9% Ivpb Bag (03/12/21 23:15) Enoxaparin Injection (Lovenox Injection) (03/12/21 23:30) Enoxaparin Injection (Lovenox Injection) (03/12/21 23:30) Medications Given in ED Vital Signs/I&O 03/12/21 03/12/21 03/12/21 21:55 21:55 21:55 Temp 36.8 Pulse 95 Resp 20 B/P (MAP) 153/105 (121) Pulse Ox 97 97 O2 Delivery Room Air Room Air Room Air Capillary Refill : Less Than 3 Seconds Blood Pressure Mean: 121 Progress Note : Progress Note PLACED IN ISOLATION ROOM PPE WORN AT ALL TIMES COVID-19 TESTING PERFORMED PT TAKEN OUT OF ISOLATION STATUS ON NEGATIVE COVID TEST NO COUGH NO DYSPNEA NO HYPOXIA--O2 SATS 96-97% ON ROOM AIR NO FEVER NO TACHYCARDIA NO CHEST PAIN NO SYMPTOMS OF ANY KIND DURING ER STAY WILL GIVE LOVENOX AND HAVE PT RESTART ELIQUIS--PT STATES HE HAS AT LEAST 3 MONTHS OF ELIQUIS AT HOME ECG Initial ECG Impression Date: Mar 12, 2021 Initial ECG Impression Time: 22:02 Initial ECG Rate: 85 Initial ECG Rhythm: Normal Sinus Diagnostic Imaging Comments CXR--PER RADIOLOGIST REPORT AT 2301 FINDINGS: There is cardiomegaly. There is is mild venous congestion. No pleural effusion or pneumothorax. Mediastinum is unremarkable. IMPRESSION: Cardiomegaly and mild central pulmonary venous congestion. CT CHEST ANGIOGRAM--PER RADIOLOGIST REPORT AT 2321 FINDINGS: There is a moderately large pulmonary embolism in the right main pulmonary artery. The thoracic aorta is normal caliber without evidence of dissection. There are no discrete pulmonary nodules, masses or infiltrates. There is no pneumothorax. There is no pleural or pericardial fluid. The visualized intra-abdominal structures are unremarkable. IMPRESSION: Moderately large pulmonary embolism in the right main pulmonary artery. No other acute cardiopulmonary abnormality Reviewed: Reviewed by Me Departure Impression Primary Impression: Pulmonary embolism Disposition: 01 HOME, SELF-CARE Condition: Stable Departure-Patient Inst. Decision time for Depature: 23:25 Referrals: JIM ESCALERA MD, RICK D MD (PCP/Family) Primary Care Physician Patient Instructions: Pulmonary Embolism (Blood Clot in the Lungs) (DC) Add. Discharge Instructions: TAKE ELIQUIS 10 MG TWICE A DAY EVERY DAY CONTINUE YOUR OTHER MEDICATIONS PRESCRIBED FOLLOW UP WITH DR. ESCALERA ON SUNDAY FOR FURTHER CARE, RETURN TO ER IF SYMPTOMS WORSEN CALL FIRST THING SUNDAY MORNING TO SCHEDULE ULTRASOUND OF YOUR LEGS All discharge instructions reviewed with patient and/or family. Voiced understa nding. MUARLI MONREAL DO Mar 12, 2021 22:28
[2021-03-12 22:31] LABS: ERYTHROCYTE SEDIMENTATION RATE 15 MM/HR (0-30)
[2021-03-12 22:32] LABS: ALBUMIN 4.2 GM/DL (3.2-4.5)
[2021-03-12 22:33] LABS: CHLORIDE 106 MMOL/L (98-107); POTASSIUM 3.8 MMOL/L (3.6-5.0); SODIUM 141 MMOL/L (135-145)
[2021-03-12 22:34] LABS: CALCIUM 9.2 MG/DL (8.5-10.1)
[2021-03-12 22:35] LABS: GLUCOSE 126 MG/DL (70-105); TOTAL PROTEIN 7.5 GM/DL (6.4-8.2)
[2021-03-12 22:36] LABS: CARBON DIOXIDE 22 MMOL/L (21-32)
[2021-03-12 22:37] LABS: BILIRUBIN,TOTAL 0.3 MG/DL (0.1-1.0)
[2021-03-12 22:38] LABS: ALKALINE PHOSPHATASE 76 U/L (40-136)
[2021-03-12 22:39] LABS: CREATININE SERUM 1.26 MG/DL (0.60-1.30); GFR ESTIMATED 57
[2021-03-12 22:40] LABS: BUN/CREATININE RATIO 16
[2021-03-12 22:41] LABS: ALANINE AMINOTRANSFERASE 28 U/L (0-55); FIBRIN DEGRADATION PRODUCTS 19.27 UG/ML (0.00-0.49); PROTHROMBIN TIME PATIENT 13.9 SEC (12.2-14.7)
[2021-03-12 22:42] LABS: CREATINE KINASE 116 U/L (30-200)
[2021-03-12 22:49] LABS: CREATINE KINASE MB 1.4 NG/ML (<6.6)
--- NOTE | 2021-03-12 22:59 | Diagnostic Imaging Report ---
INDICATION: Dyspnea. Comparison made with prior examination 03/01/2020. FINDINGS: There is cardiomegaly. There is is mild venous congestion. No pleural effusion or pneumothorax. Mediastinum is unremarkable. IMPRESSION: Cardiomegaly and mild central pulmonary venous congestion. Dictated by: Dictated on workstation # [id number]
[2021-03-12] MEDS ORDERED: CATHETER FLUSH 10 ML SYR IV PRN (23:15)
[2021-03-12] MEDS ORDERED: NS 100 ML (IVPB) BAG IV ONE (23:15)
[2021-03-12] MEDS ORDERED: HOLD METFORMIN - RECEIVED CONTRAST 20 ML VIAL IV SCH (23:15)
[2021-03-12] MEDS ORDERED: IOHEXOL 350 MG/ML 100 ML (OMNIPAQUE 350) VIAL IV ONE (23:15)
--- NOTE | 2021-03-12 23:18 | Diagnostic Imaging Report ---
PROCEDURE: CT angiography of the chest with contrast. TECHNIQUE: Multiple contiguous axial images were obtained through the chest after uneventful bolus administration of intravenous contrast. 3D reconstructed CTA MIP acquisitions were also performed. Auto Exposure Controls were utilized during the CT exam to meet ALARA standards for radiation dose reduction. INDICATION: Chest pain and shortness of breath. FINDINGS: There is a moderately large pulmonary embolism in the right main pulmonary artery. The thoracic aorta is normal caliber without evidence of dissection. There are no discrete pulmonary nodules, masses or infiltrates. There is no pneumothorax. There is no pleural or pericardial fluid. The visualized intra-abdominal structures are unremarkable. IMPRESSION: Moderately large pulmonary embolism in the right main pulmonary artery. No other acute cardiopulmonary abnormality Dictated by: Dictated on workstation # [id number]
[2021-03-12] MEDS ORDERED: ENOXAPARIN 100 MG/1 ML (LOVENOX) SYR SC ONE ×2 (23:30)
== END 2021-03-12 23:53 | disposition home or self-care (01) ==
LOC: EDUNIT# 21:46 → ER 21:49
DX: I26.99 Other pulmonary embolism without acute cor pulmonale (principal); E66.9 Obesity, unspecified; Z20.822 Contact with and (suspected) exposure to COVID-19; Z68.41 Body mass index [BMI] 40.0-44.9, adult; Z86.718 Personal history of other venous thrombosis and embolism; Z79.01 Long term (current) use of anticoagulants
CPT/HCPCS: 36415; 71045; 71275; 80053; 82550; 82553; 83605; 83735; 83874; 83880; 84145; 84484; 85025; 85379; 85610; 85652; 85730; 86141; 87040; 87636; 93005; 93041

== ENCOUNTER → 2021-03-14 | Outpatient (CLI) | payer MEDICARE, OTHER ==
--- NOTE | 2021-03-14 12:19 | Diagnostic Imaging Report ---
PROCEDURE: US Venous Lower Ext Quinn. TECHNIQUE: Multiple real-time grayscale images were obtained over the lower extremities in various projections, bilaterally. Additional duplex Doppler and color Doppler images were also obtained. INDICATION: Calf pain Right leg deep veins have good color filling and compressibility. There is phasic flow and a normal response to augmentation. In the left leg, there is nonoccluding thrombus in the popliteal vein with occlusive thrombus seen in the calf veins. IMPRESSION: Deep vein thrombosis in the left calf veins extending into the left popliteal vein. Dictated by: Dictated on workstation # [id number]
== END ==
LOC: RAD 09:17
PROVIDERS: ATTEND Emergency Medicine
DX: I82.4Z2 Acute embolism and thrombosis of unspecified deep veins of left distal lower extremity (principal)
CPT/HCPCS: 93970

== ENCOUNTER → 2022-08-16 | Outpatient (CLI) | payer MEDICARE, OTHER | LOC: RAD 08:07 | PROVIDERS: ATTEND Family Medicine | DX: M54.14 Radiculopathy, thoracic region (principal) ==

== ENCOUNTER 2022-10-05 11:24 | Emergency (ER) | payer MEDICARE, OTHER ==
[~2022-10-05] VITALS: Ht 180 cm; Wt 136.1 kg
--- NOTE | 2022-10-05 11:59 | ED Back Pain ---
General Chief Complaint: Back Problems Stated Complaint: LOWER BACK PAIN | VOMITING Nursing Triage Note: Pt presents to ER with complaints of right lower back pain x3 hours, pt does report hx of chronic back pain. Reports that he scheduled for epidural injection 10/12. Pt also reports complaints of vomiting 4 today. Source of Information: Patient Exam Limitations: No Limitations History of Present Illness Date Seen by Provider: Oct 05, 2022 Time Seen by Provider: 11:49 Initial Comments 67-year-old male presents to the ER with complaint of right lower back pain for the last 3 hours. He states he has had some right lower quadrant abdominal pain as well. Reports several episodes of vomiting this morning and sweating. Denies known fevers. Reports he has chronic back pain, but states this pain is in a different location. Last bowel movement was approximately 1 hour ago and normal. Denies diarrhea, constipation, dysuria, hematuria. Allergies and Home Medications Allergies Coded Allergies: No Known Drug Allergies (Verified , 04/07/18) Patient Home Medication List Home Medication List Reviewed: Yes Apixaban (Eliquis) 5 Mg Tablet, 5 MG PO BID, (Reported) Entered as Reported by: BRIONNA EATON on 02/17/20 1556 Fish Oil/Dha/Epa (Fish Oil 1,200 mg Fish Oil) 1 Each Capsule, 2,400 MG PO DAILY, (Reported) Entered as Reported by: DON BURRIS on 04/08/18 1056 Multivitamin (Daily Value) 1 Each Tablet, 1 TAB PO DAILY, (Reported) Entered as Reported by: DON BURRIS on 04/08/18 1056 Niacinamide (Niacin) 500 Mg Tablet, 500 MG PO DAILY, (Reported) Entered as Reported by: DON BURRIS on 04/08/18 1056 Ondansetron (Ondansetron Odt) 4 Mg Tab.rapdis, 4 MG SL Q4H PRN for NAUSEA/VOMITING Prescribed by: Ernestine Huang on 10/05/22 1446 Oseltamivir Phosphate (Tamiflu) 75 Mg Cap, 75 MG PO BID Prescribed by: BRENDA BARRERA on 02/18/20 1716 Pantoprazole Sodium (Protonix) 40 Mg Tablet.dr, 40 MG PO DAILY PRN for HEARTBURN, (Reported) Entered as Reported by: DON BURRIS on 04/08/18 1100 Sumatriptan Succinate (Imitrex) 100 Mg Tablet, 100 MG PO UD PRN for MIGRAINE, (Reported) Entered as Reported by: DON BURRIS on 04/08/18 1056 Tamsulosin HCl (Flomax) 0.4 Mg Cap, 0.4 MG PO DAILY Prescribed by: Ernestine Huang on 10/05/22 1446 Tramadol HCl (Tramadol HCl) 50 Mg Tablet, 50 MG PO Q6H PRN for PAIN Prescribed by: Ernestine Huang on 10/05/22 1447 Review of Systems Constitutional: see HPI Past Vwvamjy-Yrqeio-Zyqxbx Hx Patient Social History Tobacco Use?: No Use of E-Cig and/or Vaping dev: No Substance use?: No Alcohol Use?: No Pt feels they are or have been: No Immunizations Up To Date PED Vaccines UTD: No Influenza Vaccine Up-to-Date: Yes; Up-to-Date First/Initial COVID19 Vaccinat: unknown Seasonal Allergies Seasonal Allergies: Yes (Hayufever) Past Medical History Surgery/Hospitalization HX: Chronic Back Pain, Cholesterol, HTN, PE Surgeries: No Respiratory: Yes Pulmonary Embolism Cardiac: Yes Deep Vein Thrombosis, High Cholesterol Neurological: Yes Headaches /Migraines Genitourinary: No Gastrointestinal: Yes Hemorrhoids Musculoskeletal: No Endocrine: Yes (OBESITY) HEENT: No Cancer: No Psychosocial: No Integumentary: No Blood Disorders: No Family Medical History FH: bladder cancer Cancer PAST MEDICAL AND SURGICAL HISTORY: -COLONOSCOPY 11/[address] VALLADARES--HEMORRHOIDS, OTHERWISE NORMAL -03/2018--BILATERAL LEG DVT'S AND BILATERAL P.E.'S--DID NOT REQUIRE HOME O2 -HOSPITALIZED 01/2020 FOR COVID-19 AND INFLUENZA B. DID NOT REQUIRE VENTILATION OR HOME O2. Physical Exam Vital Signs Vital Signs - First Documented 10/05/22 11:34 Temp 35.7 Pulse 54 Resp 18 B/P (MAP) 172/106 (128) Pulse Ox 97 O2 Delivery Room Air Capillary Refill : Less Than 3 Seconds Height, Weight, BMI Height: 6'2.00" Weight: 262lbs. 9.0oz. 119.095147ux; 42.00 BMI Method:Estimated General Appearance: Mild Distress Neck: Normal Inspection, Supple Cardiovascular: Regular Rate, Rhythm Respiratory: Lungs Clear, Normal Breath Sounds, No Accessory Muscle Use, No Respiratory Distress Gastrointestinal: Normal Bowel Sounds Back: Normal Inspection, No Vertebral Tenderness, CVA Tenderness (R) (mild), Other (Mild pain with palpation of right lower back) Extremity: Normal Inspection, Normal Range of Motion Neurologic/Psychiatric: Alert, Normal Mood/Affect Skin: Normal Color, Warm/Dry Progress/Results/Core Measures Results/Orders Lab Results Laboratory Tests Test 10/05/22 12:00 10/05/22 14:17 Range/Units White Blood Count 11.7 H 4.3-11.0 10^3/uL Red Blood Count 5.23 4.30-5.52 10^6/uL Hemoglobin 15.6 13.3-17.7 g/dL Hematocrit 47 40-54 % Mean Corpuscular Volume 90 80-99 fL Mean Corpuscular Hemoglobin 30 25-34 pg Mean Corpuscular Hemoglobin Concent 33 32-36 g/dL Red Cell Distribution Width 15.0 H 10.0-14.5 % Platelet Count 231 130-400 10^3/uL Mean Platelet Volume 10.3 9.0-12.2 fL Immature Granulocyte % (Auto) 0 % Neutrophils (%) (Auto) 72 42-75 % Lymphocytes (%) (Auto) 18 12-44 % Monocytes (%) (Auto) 8 0-12 % Eosinophils (%) (Auto) 1 0-10 % Basophils (%) (Auto) 1 0-10 % Neutrophils # (Auto) 8.4 H 1.8-7.8 10^3/uL Lymphocytes # (Auto) 2.1 1.0-4.0 10^3/uL Monocytes # (Auto) 0.9 0.0-1.0 10^3/uL Eosinophils # (Auto) 0.2 0.0-0.3 10^3/uL Basophils # (Auto) 0.1 0.0-0.1 10^3/uL Immature Granulocyte # (Auto) 0.0 0.0-0.1 10^3/uL Sodium Level 140 135-145 MMOL/L Potassium Level 4.3 3.6-5.0 MMOL/L Chloride Level 109 H 98-107 MMOL/L Carbon Dioxide Level 20 L 21-32 MMOL/L Anion Gap 11 5-14 MMOL/L Blood Urea Nitrogen 22 H 7-18 MG/DL Creatinine 1.33 H 0.60-1.30 MG/DL Estimat Glomerular Filtration Rate 59 BUN/Creatinine Ratio 17 Glucose Level 119 H 70-105 MG/DL Calcium Level 9.3 8.5-10.1 MG/DL Corrected Calcium 9.0 8.5-10.1 MG/DL Total Bilirubin 0.4 0.1-1.0 MG/DL Aspartate Amino Transf (AST/SGOT) 27 5-34 U/L Alanine Aminotransferase (ALT/SGPT) 41 0-55 U/L Alkaline Phosphatase 63 40-136 U/L Total Protein 7.3 6.4-8.2 GM/DL Albumin 4.4 3.2-4.5 GM/DL Urine Color YELLOW Urine Clarity SL CLOUDY Urine pH 5.5 5-9 Urine Specific [place] >=1.030 1.016-1.022 Urine Protein TRACE H NEGATIVE Urine Glucose (UA) NEGATIVE NEGATIVE Urine Ketones NEGATIVE NEGATIVE Urine Nitrite NEGATIVE NEGATIVE Urine Bilirubin NEGATIVE NEGATIVE Urine Urobilinogen 1.0 < = 1.0 MG/DL Urine Leukocyte Esterase NEGATIVE NEGATIVE Urine RBC (Auto) NEGATIVE NEGATIVE Urine RBC RARE /HPF Urine WBC RARE /HPF Urine Crystals PRESENT H /LPF Urine Amorphous Sediment RARE AMANDA URATES H /LPF Urine Bacteria TRACE /HPF Urine Casts NONE /LPF Urine Mucus SMALL H /LPF Urine Culture Indicated NO My Orders Orders - ERNESTINE SMITH APRN Comprehensive Metabolic Panel (10/05/22 11:54) Ua Culture If Indicated (10/05/22 11:54) Ed Iv/Invasive Line Start (10/05/22 11:54) Cbc With Automated Diff (10/05/22 11:54) Ct Abd/Pelvis Wo(Kidney Stone) (10/05/22 11:54) Ketorolac Injection (Toradol Injection) (10/05/22 12:00) Ondansetron Injection (Zofran Injectio (10/05/22 12:00) Ns Iv 1000 Ml (Sodium Chloride 0.9%) (10/05/22 12:00) Medications Given in ED Current Medications Medications Dose Ordered Sig/Florencia Route Start Time Stop Time Status Last Admin Dose Admin Ketorolac Tromethamine 15 mg ONCE ONCE IVP 10/05/22 12:00 10/05/22 12:01 DC 10/05/22 12:13 15 MG Ondansetron HCl 4 mg ONCE ONCE IVP 10/05/22 12:00 10/05/22 12:01 DC 10/05/22 12:12 4 MG Vital Signs/I&O 10/05/22 10/05/22 10/05/22 10/05/22 11:34 12:59 14:02 14:57 Temp 35.7 Pulse 54 53 55 58 Resp 18 20 20 20 B/P (MAP) 172/106 (128) 165/94 (117) 142/93 (109) 159/106 Pulse Ox 97 99 98 97 O2 Delivery Room Air Room Air Room Air Room Air Blood Pressure Mean: 128 Progress Progress Note : Progress Note Patient seen and evaluated, sitting on edge of bed, mild distress. Based on exam and symptoms, differential diagnosis includes but is not limited to nephrolithiasis, pyelonephritis, muscle strain. Work-up initiated including CBC, CMP, UA, CT abdomen pelvis without contrast. IV fluids, Toradol, Zofran ordered. [address] reviewed. CBC shows slightly elevated WBC 11.7. CMP shows slightly elevated chloride 109, slightly decreased CO2 of 20, slightly elevated BUN 22 creatinine 1.33, GFR 59. Kidney function is similar to previous labs. Awaiting urinalysis at this time. CT abdomen pelvis shows 3 mm obstructing calculus in the right ureter with moderate right-sided hydroureternephrosis. Indeterminate cyst of the left kidney measuring 2.6 cm, radiologist recommends a renal protocol CT or MRI of the abdomen. Cholelithiasis also noted without acute cholecystitis. Results discussed with patient. We are still waiting on urinalysis at this time. I discussed options for pain and nausea management at home. Patient declined prescriptions for pain or nausea medication. States he will take Tylenol at home. Instructed patient to follow-up with urology. Will provide him the phone numbers for [facility] in [place]. Will provide a urine strainer so that patient can determine when he passes the stone. 1439 Urinalysis reviewed, trace protein, negative for nitrates, leukocytes, RBCs, WBCs, trace bacteria. Urine crystals, and rare amorphous urates noted. Results discussed with patient. I discussed pain medication and nausea medication with patient again. Patient agreeable to receiving prescriptions in case he needs them. Discharge instructions and return precautions provided. Diagnostic Imaging Diagonstic Imaging: CT Plain Films/CT/US/NM/MRI: abdomen Comments [facility] [place] [place] NAME: JEANETTE IZQUIERDO REC#: [id number] PT STATUS: REG ER : 1955 PHYSICIAN: ERNESTINE SMITH APRN ADMIT DATE: 10/05/22/ER Signed Date of Exam:10/05/22 CT ABD/PELVIS WO(KIDNEY STONE) PROCEDURE: CT urinary tract, rule out kidney stone. TECHNIQUE: Multiple contiguous axial images were obtained through the abdomen and pelvis without the use of intravenous contrast. Auto Exposure Controls were utilized during the CT exam to meet ALARA standards for radiation dose reduction. INDICATION: Low back pain. Concern for renal stones. COMPARISON: None. FINDINGS: The heart is unremarkable. The lung bases are clear. Obstructing calculus is seen in the distal right ureter measuring 3 mm with moderate right-sided hydroureteronephrosis. Perinephric fat stranding is seen on the right. No hydronephrosis or renal calculi in the left kidney. Indeterminate cyst is seen in the left kidney measuring 2.6 cm. The urinary bladder is nondistended. Cholelithiasis is seen within a nondistended gallbladder. The liver, spleen, pancreas, and adrenal glands have a normal appearance. There is no pathologically enlarged mesenteric or retroperitoneal adenopathy. The bowel loops are nondilated. The appendix is visualized in the right lower quadrant and has a normal appearance. There is no free fluid or free air. No acute osseous abnormalities. There is no free air, loculated collection, or adenopathy in the pelvis. IMPRESSION: 1. Obstructing calculus in the distal right ureter measuring 3 mm with moderate right-sided hydroureteronephrosis. 2. Indeterminate cyst in the left kidney measuring 2.6 cm. Recommend renal protocol CT or MRI of the abdomen to further evaluate. 3. Cholelithiasis without CT evidence of acute cholecystitis. Departure Impression Primary Impression: Ureteral stone with hydronephrosis Disposition: 01 HOME, SELF-CARE Condition: Stable Departure-Patient Inst. Decision time for Depature: 14:38 Referrals: REESE CORBIN MD (PCP/Family) Primary Care Physician Patient Instructions: Kidney Stone, Adult ED Add. Discharge Instructions: Strain your urine to determine when you passed the stone. You may collect it and take it to urology. Call [facility] or [facility] urology today to schedule a follow-up appointment. Take tramadol every 6 hours as needed for pain. This medication can make you sleepy, do not drive or operate heavy machinery. You may also take 1000 mg of Tylenol every 8 hours as needed for pain. Use Zofran as needed for nausea and vomiting, only take when needed because it can cause constipation. Follow-up with your primary care provider regarding the cyst on your kidney. Return for severe pain, recurrent vomiting, fever, or any other new, concerning, or worsening symptoms. [facility] [address], [place] [address] [facility] [address], [place] [address] All discharge instructions reviewed with patient and/or family. Voiced understanding. Scripts Ondansetron (Ondansetron Odt) 4 Mg Tab.rapdis 4 MG SL Q4H PRN for NAUSEA/VOMITING, #20 TAB 0 Refills Prov: ERNESTINE SMITH APRN 10/05/22 Tramadol HCl (Tramadol HCl) 50 Mg Tablet 50 MG PO Q6H PRN for PAIN, #20 TAB 0 Refills Prov: ERNESTINE SMITH APRN 10/05/22 Tamsulosin HCl (Flomax) 0.4 Mg Cap 0.4 MG PO DAILY for 14 Days, #14 CAP 0 Refills Prov: ERNESTINE SMITH APRN 10/05/22 Copy Copies To 1: REESE CORBIN MD, BRITTANY R APRN Oct 05, 2022 11:59
[2022-10-05] MEDS ORDERED: KETOROLAC 30 MG/ML VIAL IVP ONE (12:00)
[2022-10-05] MEDS ORDERED: ONDANSETRON 4 MG/2 ML (SDV) Z0FRAN IVP ONE (12:00)
[2022-10-05] MEDS ORDERED: NS IV 1000 ML 1,000 ML IV SCH (12:00)
[2022-10-05 12:07] LABS: BASOPHILS # (AUTO) 0.1 10^3/uL (0.0-0.1); BASOPHILS % (AUTO) 1 % (0-10); EOSINOPHILS # (AUTO) 0.2 10^3/uL (0.0-0.3); EOSINOPHILS % (AUTO) 1 % (0-10); HEMATOCRIT 47 % (40-54); HEMOGLOBIN 15.6 g/dL (13.3-17.7); LYMPHOCYTES # (AUTO) 2.1 10^3/uL (1.0-4.0); LYMPHOCYTES % (AUTO) 18 % (12-44); MEAN CORPUSCULAR HEMOGLOBIN 30 pg (25-34); MEAN CORPUSCULAR HGB CONC 33 g/dL (32-36); MEAN CORPUSCULAR VOLUME 90 fL (80-99); MEAN PLATELET VOLUME 10.3 fL (9.0-12.2); MONOCYTES # (AUTO) 0.9 10^3/uL (0.0-1.0); MONOCYTES % (AUTO) 8 % (0-12); NEUTROPHILS # (AUTO) 8.4 10^3/uL (1.8-7.8); NEUTROPHILS % (AUTO) 72 % (42-75); PLATELET COUNT 231 10^3/uL (130-400); WHITE BLOOD COUNT 11.7 10^3/uL (4.3-11.0)
[2022-10-05 12:18] LABS: ALBUMIN 4.4 GM/DL (3.2-4.5); POTASSIUM 4.3 MMOL/L (3.6-5.0)
[2022-10-05 12:19] LABS: CALCIUM 9.3 MG/DL (8.5-10.1)
[2022-10-05 12:20] LABS: TOTAL PROTEIN 7.3 GM/DL (6.4-8.2)
[2022-10-05 12:22] LABS: BILIRUBIN,TOTAL 0.4 MG/DL (0.1-1.0)
[2022-10-05 12:24] LABS: CREATININE SERUM 1.33 MG/DL (0.60-1.30)
--- NOTE | 2022-10-05 12:39 | Diagnostic Imaging Report ---
PROCEDURE: CT urinary tract, rule out kidney stone. TECHNIQUE: Multiple contiguous axial images were obtained through the abdomen and pelvis without the use of intravenous contrast. Auto Exposure Controls were utilized during the CT exam to meet ALARA standards for radiation dose reduction. INDICATION: Low back pain. Concern for renal stones. COMPARISON: None. FINDINGS: The heart is unremarkable. The lung bases are clear. Obstructing calculus is seen in the distal right ureter measuring 3 mm with moderate right-sided hydroureteronephrosis. Perinephric fat stranding is seen on the right. No hydronephrosis or renal calculi in the left kidney. Indeterminate cyst is seen in the left kidney measuring 2.6 cm. The urinary bladder is nondistended. Cholelithiasis is seen within a nondistended gallbladder. The liver, spleen, pancreas, and adrenal glands have a normal appearance. There is no pathologically enlarged mesenteric or retroperitoneal adenopathy. The bowel loops are nondilated. The appendix is visualized in the right lower quadrant and has a normal appearance. There is no free fluid or free air. No acute osseous abnormalities. There is no free air, loculated collection, or adenopathy in the pelvis. IMPRESSION: 1. Obstructing calculus in the distal right ureter measuring 3 mm with moderate right-sided hydroureteronephrosis. 2. Indeterminate cyst in the left kidney measuring 2.6 cm. Recommend renal protocol CT or MRI of the abdomen to further evaluate. 3. Cholelithiasis without CT evidence of acute cholecystitis. Dictated by: Dictated on workstation # [id number]
[2022-10-05 14:24] LABS: BILIRUBIN,URINE NEGATIVE (NEGATIVE); CLARITY,URINE SL CLOUDY; COLOR,URINE YELLOW; GLUCOSE, URINE (UA) NEGATIVE (NEGATIVE); KETONES,URINE NEGATIVE (NEGATIVE); LEUKOCYTE ESTERASE ,URINE NEGATIVE (NEGATIVE); NITRITE,URINE NEGATIVE (NEGATIVE); PH,URINE 5.5 (5-9); PROTEIN,URINE TRACE (NEGATIVE)
[2022-10-05 14:33] LABS: BACTERIA,URINE TRACE /HPF; RBC,URINE RARE /HPF; WBC,URINE RARE /HPF
[2022-10-05 14:34] LABS: AMORPHOUS SEDIMENT,UR RARE AMOR URATES /LPF
[2022-10-05] MEDS ORDERED: ONDA4TAB11 SL (14:46)
[2022-10-05] MEDS ORDERED: TMSL.4C PO (14:46)
[2022-10-05] MEDS ORDERED: TRM50T PO (14:46)
[2022-10-05 14:57] VITALS: BP 159/106
== END 2022-10-05 14:54 | disposition home or self-care (01) ==
LOC: EDUNIT# 11:24 → ER 11:26
DX: N13.2 Hydronephrosis with renal and ureteral calculous obstruction (principal); G89.29 Other chronic pain; E66.9 Obesity, unspecified; Z28.311 Partially vaccinated for COVID-19; Z68.41 Body mass index [BMI] 40.0-44.9, adult
CPT/HCPCS: 36415; 74176; 80053; 81000; 85025

== ENCOUNTER 2022-10-08 09:30 | Emergency (ER) | payer MEDICARE, OTHER ==
[~2022-10-08] VITALS: Ht 185 cm; Wt 136.1 kg
[~2022-10-08 09:30] MED LIST changes: +ONDA4TAB11 SL; +TMSL.4C PO; +TRM50T PO
[2022-10-08] MEDS ORDERED: morphine INJ 10 MG/ML 1ML (SYR OR VIAL) IVP STA (09:42)
[2022-10-08] MEDS ORDERED: KETOROLAC 15 MG/ML VIAL IVP ONE (09:45)
--- NOTE | 2022-10-08 09:46 | ED Abdominal Pain ---
General Stated Complaint: KIDNEY STONES Source of Information: Patient Exam Limitations: No Limitations History of Present Illness Date Seen by Provider: Oct 08, 2022 Time Seen by Provider: 09:37 Initial Comments 67-year-old male presents for continued right flank pain since . He was seen here and diagnosed with a kidney stone on that side. He has pain has been unrelenting, unchanging despite the use of hydrocodone at home. He has nausea but no vomiting. Decreased p.o. intake. No fevers or chills. No urinary symptoms. All other systems reviewed and negative except documented per HPI. Voice recognition software was used to help create this chart Allergies and Home Medications Allergies Coded Allergies: No Known Drug Allergies (Verified , 04/07/18) Patient Home Medication List Home Medication List Reviewed: Yes Apixaban (Eliquis) 5 Mg Tablet, 5 MG PO BID, (Reported) Entered as Reported by: BRIONNA EATON on 02/17/20 1556 Fish Oil/Dha/Epa (Fish Oil 1,200 mg Fish Oil) 1 Each Capsule, 2,400 MG PO DAILY, (Reported) Entered as Reported by: DON BURRIS on 04/08/18 1056 Multivitamin (Daily Value) 1 Each Tablet, 1 TAB PO DAILY, (Reported) Entered as Reported by: DON BURRIS on 04/08/18 1056 Niacinamide (Niacin) 500 Mg Tablet, 500 MG PO DAILY, (Reported) Entered as Reported by: DON BURRIS on 04/08/18 1056 Ondansetron (Ondansetron Odt) 4 Mg Tab.rapdis, 4 MG SL Q4H PRN for NAUSEA/VOMITING Prescribed by: Ernestine Huang on 10/05/22 1446 Oseltamivir Phosphate (Tamiflu) 75 Mg Cap, 75 MG PO BID Prescribed by: BRENDA BARRERA on 02/18/20 1716 Pantoprazole Sodium (Protonix) 40 Mg Tablet.dr, 40 MG PO DAILY PRN for HEARTBURN, (Reported) Entered as Reported by: DON BURRIS on 04/08/18 1100 Sumatriptan Succinate (Imitrex) 100 Mg Tablet, 100 MG PO UD PRN for MIGRAINE, (Reported) Entered as Reported by: DON BURRIS on 04/08/18 1056 Tamsulosin HCl (Flomax) 0.4 Mg Cap, 0.4 MG PO DAILY Prescribed by: Ernestine Huang on 10/05/22 144 Tramadol HCl (Tramadol HCl) 50 Mg Tablet, 50 MG PO Q6H PRN for PAIN Prescribed by: Ernestine Huang on 10/05/22 144 Review of Systems Review of Systems Constitutional: see HPI Past Ryzcbvw-Glvjee-Fhjdzj Hx Patient Social History Tobacco Use?: No Use of E-Cig and/or Vaping dev: No Substance use?: No Alcohol Use?: No Immunizations Up To Date PED Vaccines UTD: No First/Initial COVID19 Vaccinat: unknown Seasonal Allergies Seasonal Allergies: Yes (Hayufever) Past Medical History Surgery/Hospitalization HX: Chronic Back Pain, Cholesterol, HTN, PE Surgeries: No Respiratory: Yes Pulmonary Embolism Cardiac: Yes Deep Vein Thrombosis, High Cholesterol Neurological: Yes Headaches /Migraines Genitourinary: No Gastrointestinal: Yes Hemorrhoids Musculoskeletal: No Endocrine: Yes (OBESITY) HEENT: No Cancer: No Psychosocial: No Integumentary: No Blood Disorders: No Family Medical History FH: bladder cancer Cancer PAST MEDICAL AND SURGICAL HISTORY: -COLONOSCOPY 11/[address] VALLADARES--HEMORRHOIDS, OTHERWISE NORMAL -03/2018--BILATERAL LEG DVT'S AND BILATERAL P.E.'S--DID NOT REQUIRE HOME O2 -HOSPITALIZED 01/2020 FOR COVID-19 AND INFLUENZA B. DID NOT REQUIRE VENTILATION OR HOME O2. Physical Exam Vital Signs Vital Signs - First Documented 10/08/22 09:40 Temp 37.7 Pulse 101 Resp 18 B/P (MAP) 140/76 (97) Pulse Ox 94 Capillary Refill : Height/Weight/BMI Height: 6'2.00" Weight: 262lbs. 9.0oz. 119.550754vi; 42.00 BMI Method:Estimated General Appearance: WD/WN, mild distress HEENT: normal ENT inspection Respiratory: chest non-tender, lungs clear, normal breath sounds, no respiratory distress, no accessory muscle use Cardiovascular: regular rate, rhythm, no murmur Gastrointestinal: normal bowel sounds, non tender, soft, no organomegaly Back: CVA tenderness (R) Neurologic/Psychiatric: alert, oriented x 3 Progress/Results/Core Measures Results/Orders Lab Results Laboratory Tests Test 10/08/22 09:45 10/08/22 09:50 Range/Units White Blood Count 18.1 H 4.3-11.0 10^3/uL Red Blood Count 4.75 4.30-5.52 10^6/uL Hemoglobin 14.4 13.3-17.7 g/dL Hematocrit 43 40-54 % Mean Corpuscular Volume 91 80-99 fL Mean Corpuscular Hemoglobin 30 25-34 pg Mean Corpuscular Hemoglobin Concent 33 32-36 g/dL Red Cell Distribution Width 15.1 H 10.0-14.5 % Platelet Count 233 130-400 10^3/uL Mean Platelet Volume 10.7 9.0-12.2 fL Immature Granulocyte % (Auto) 1 % Neutrophils (%) (Auto) 83 H 42-75 % Lymphocytes (%) (Auto) 8 L 12-44 % Monocytes (%) (Auto) 8 0-12 % Eosinophils (%) (Auto) 0 0-10 % Basophils (%) (Auto) 0 0-10 % Neutrophils # (Auto) 15.1 H 1.8-7.8 10^3/uL Lymphocytes # (Auto) 1.4 1.0-4.0 10^3/uL Monocytes # (Auto) 1.4 H 0.0-1.0 10^3/uL Eosinophils # (Auto) 0.0 0.0-0.3 10^3/uL Basophils # (Auto) 0.1 0.0-0.1 10^3/uL Immature Granulocyte # (Auto) 0.1 0.0-0.1 10^3/uL Neutrophils % (Manual) 84 % Lymphocytes % (Manual) 5 % Monocytes % (Manual) 11 % Eosinophils % (Manual) 0 % Basophils % (Manual) 0 % Band Neutrophils 0 % Blood Morphology Comment NORMAL Sodium Level 135 135-145 MMOL/L Potassium Level 4.2 3.6-5.0 MMOL/L Chloride Level 103 98-107 MMOL/L Carbon Dioxide Level 19 L 21-32 MMOL/L Anion Gap 13 5-14 MMOL/L Blood Urea Nitrogen 26 H 7-18 MG/DL Creatinine 2.06 H 0.60-1.30 MG/DL Estimat Glomerular Filtration Rate 35 BUN/Creatinine Ratio 13 Glucose Level 119 H 70-105 MG/DL Calcium Level 9.1 8.5-10.1 MG/DL Corrected Calcium 9.3 8.5-10.1 MG/DL Total Bilirubin 1.2 H 0.1-1.0 MG/DL Aspartate Amino Transf (AST/SGOT) 18 5-34 U/L Alanine Aminotransferase (ALT/SGPT) 24 0-55 U/L Alkaline Phosphatase 71 40-136 U/L Total Protein 7.2 6.4-8.2 GM/DL Albumin 3.8 3.2-4.5 GM/DL Lipase < 4 L 8-78 U/L Urine Color YELLOW Urine Clarity CLEAR Urine pH 6.0 5-9 Urine Specific [place] 1.025 H 1.016-1.022 Urine Protein 1+ H NEGATIVE Urine Glucose (UA) NEGATIVE NEGATIVE Urine Ketones 2+ H NEGATIVE Urine Nitrite NEGATIVE NEGATIVE Urine Bilirubin NEGATIVE NEGATIVE Urine Urobilinogen 1.0 < = 1.0 MG/DL Urine Leukocyte Esterase NEGATIVE NEGATIVE Urine RBC (Auto) TRACE-I H NEGATIVE Urine RBC 5-10 H /HPF Urine WBC NONE /HPF Urine Squamous Epithelial Cells NONE /HPF Urine Crystals NONE /LPF Urine Bacteria NEGATIVE /HPF Urine Casts NONE /LPF Urine Mucus NEGATIVE /LPF Urine Culture Indicated NO My Orders Orders - OCTAVIA AGUILAR DO Cbc With Automated Diff (10/08/22 09:42) Comprehensive Metabolic Panel (10/08/22 09:42) Lipase (10/08/22 09:42) Ua Culture If Indicated (10/08/22 09:42) Ct Abdomen/Pelvis Wo (10/08/22 09:42) Morphine Injection (Morphine Injection (10/08/22 09:42) Ketorolac Injection (Toradol Injection) (10/08/22 09:45) Manual Differential (10/08/22 09:45) Iohexol Injection (Omnipaque 350 Mg/Ml 1 (10/08/22 10:45) Received Contrast (Hold Metformin- Contr (10/08/22 10:45) Ns (Ivpb) (Sodium Chloride 0.9% Ivpb Bag (10/08/22 10:45) Ns Iv 1000 Ml (Sodium Chloride 0.9%) (10/08/22 10:45) Ceftriaxone Iv/Im (Rocephin Iv/Im) (10/08/22 11:15) Medications Given in ED Current Medications Medications Dose Ordered Sig/Florencia Route Start Time Stop Time Status Last Admin Dose Admin Ceftriaxone Sodium 1000 mg/ Sodium Chloride 50 ml @ 100 mls/hr ONCE ONCE IV 10/08/22 11:15 10/08/22 11:44 DC 10/08/22 11:34 100 MLS/HR Ketorolac Tromethamine 15 mg ONCE ONCE IVP 10/08/22 09:45 10/08/22 09:46 DC 10/08/22 09:52 15 MG Sodium Chloride 1,000 ml @ 999 mls/hr ONCE ONCE IV 10/08/22 10:45 10/08/22 11:45 DC 10/08/22 11:04 999 MLS/HR Vital Signs/I&O 10/08/22 09:40 Temp 37.7 Pulse 101 Resp 18 B/P (MAP) 140/76 (97) Pulse Ox 94 Departure Communication (Admissions) 1040: Spoke to [facility], at capacity and cannot accept transfer. 1044: [facility] Spoke to Dr Villanueva, urology. Request admission to hospitalist, pending call back. 1145: Called to check status, pending call back from hospitalist. 1250: [facility], spoke to mid level practitionerAamir. Accepts patient on behalf of Dr Holbrook. Pending room assignment. Patient is stable for transport POV as we have no ground transportation available. He states his will drive him. Pain controlled at this time. 1410: Received room assignment, Rm [id number]. Will get packet together and transfer via POV. Impression Primary Impression: Ureterolithiasis Additional Impression: PARUL (acute kidney injury) Disposition: XFER [facility] INCLUDES THE [facility] Departure-Patient Inst. Referrals: REESE CORBIN MD (PCP/Family) Primary Care Physician OCTAVIA AGUILAR DO Oct 08, 2022 09:46
[2022-10-08 09:58] LABS: BASOPHILS # (AUTO) 0.1 10^3/uL (0.0-0.1); BASOPHILS % (AUTO) 0 % (0-10); EOSINOPHILS % (AUTO) 0 % (0-10); HEMATOCRIT 43 % (40-54); HEMOGLOBIN 14.4 g/dL (13.3-17.7); LYMPHOCYTES # (AUTO) 1.4 10^3/uL (1.0-4.0); LYMPHOCYTES % (AUTO) 8 % (12-44); MEAN CORPUSCULAR HEMOGLOBIN 30 pg (25-34); MEAN CORPUSCULAR HGB CONC 33 g/dL (32-36); MEAN CORPUSCULAR VOLUME 91 fL (80-99); MEAN PLATELET VOLUME 10.7 fL (9.0-12.2); MONOCYTES # (AUTO) 1.4 10^3/uL (0.0-1.0); MONOCYTES % (AUTO) 8 % (0-12); NEUTROPHILS # (AUTO) 15.1 10^3/uL (1.8-7.8); NEUTROPHILS % (AUTO) 83 % (42-75); PLATELET COUNT 233 10^3/uL (130-400); WHITE BLOOD COUNT 18.1 10^3/uL (4.3-11.0)
[2022-10-08 10:06] LABS: ALBUMIN 3.8 GM/DL (3.2-4.5); CHLORIDE 103 MMOL/L (98-107); POTASSIUM 4.2 MMOL/L (3.6-5.0); SODIUM 135 MMOL/L (135-145)
[2022-10-08 10:06] LABS: BILIRUBIN,URINE NEGATIVE (NEGATIVE); CLARITY,URINE CLEAR; COLOR,URINE YELLOW; GLUCOSE, URINE (UA) NEGATIVE (NEGATIVE); KETONES,URINE 2+ (NEGATIVE); LEUKOCYTE ESTERASE ,URINE NEGATIVE (NEGATIVE); NITRITE,URINE NEGATIVE (NEGATIVE); PROTEIN,URINE 1+ (NEGATIVE)
[2022-10-08 10:07] LABS: CALCIUM 9.1 MG/DL (8.5-10.1)
[2022-10-08 10:09] LABS: GLUCOSE 119 MG/DL (70-105); TOTAL PROTEIN 7.2 GM/DL (6.4-8.2)
[2022-10-08 10:10] LABS: CARBON DIOXIDE 19 MMOL/L (21-32)
[2022-10-08 10:11] LABS: BILIRUBIN,TOTAL 1.2 MG/DL (0.1-1.0)
[2022-10-08 10:12] LABS: ALKALINE PHOSPHATASE 71 U/L (40-136); CREATININE SERUM 2.06 MG/DL (0.60-1.30); GFR ESTIMATED 35
[2022-10-08 10:13] LABS: BUN/CREATININE RATIO 13
[2022-10-08 10:15] LABS: ALANINE AMINOTRANSFERASE 24 U/L (0-55)
[2022-10-08 10:16] LABS: LIPASE < 4 U/L (8-78)
[2022-10-08 10:20] LABS: BACTERIA,URINE NEGATIVE /HPF
--- NOTE | 2022-10-08 10:23 | Diagnostic Imaging Report ---
PROCEDURE: CT abdomen and pelvis without contrast. TECHNIQUE: Multiple contiguous axial images were obtained through the abdomen and pelvis without the use of intravenous contrast. Auto Exposure Controls were utilized during the CT exam to meet ALARA standards for radiation dose reduction. INDICATION: Right flank pain. CT abdomen pelvis 10/05/2022 FINDINGS: Slight advancement of the 0.3 cm nonobstructing kidney stone now within the right distal ureter near the right ureterovesicular junction. Markedly increased fat stranding about the right ureter and right kidney and similar moderate right hydronephrosis. Unchanged indeterminate 2.6 cm lesion within the left kidney. The adrenal glands are normal. The pancreas is normal. The gallbladder demonstrates gallstones. Aorta is normal. The bowel is nondilated. Scattered diverticula within the sigmoid colon without evidence of acute diverticulitis. The osseous structures demonstrate no lytic or sclerotic bone lesions. IMPRESSION: Slight advancement of the 0.3 cm nonobstructing kidney stone now within the right distal ureter near the right ureterovesicular junction. Markedly increased fat stranding about the right ureter and right kidney may be seen with superimposed infection or may represent ureteral rupture. Consider contrast enhanced CT for further workup and correlation with urinalysis. Similar-appearing moderate right hydronephrosis. 2.6 cm indeterminate left renal mass. Dictated by: Dictated on workstation # [id number]
[2022-10-08 10:27] LABS: BAND NEUTROPHILS 0 %; BASOPHILS % (MANUAL) 0 %; EOSINOPHILS % (MANUAL) 0 %; LYMPHOCYTES % (MANUAL) 5 %; MONOCYTES % (MANUAL) 11 %; NEUTROPHILS % (MANUAL) 84 %; RBC MORPH NORMAL
[2022-10-08] MEDS ORDERED: HOLD METFORMIN - RECEIVED CONTRAST 20 ML VIAL IV SCH (10:45)
[2022-10-08] MEDS ORDERED: NS 100 ML (IVPB) BAG IV ONE (10:45)
[2022-10-08] MEDS ORDERED: NS IV 1000 ML 1,000 ML IV ONE (10:45)
[2022-10-08] MEDS ORDERED: IOHEXOL 350 MG/ML 100 ML (OMNIPAQUE 350) VIAL IV ONE (10:45)
[2022-10-08] MEDS ORDERED: cefTRIAXone IV/IM 1,000 MG in NS (IVPB) 50 ML IV ONE (11:15)
[2022-10-08 14:30] VITALS: BP 132/70
== END 2022-10-08 14:37 | disposition short-term general hospital (02) ==
LOC: EDUNIT# 09:30 → ER 09:32
DX: N17.9 Acute kidney failure, unspecified (principal); N20.1 Calculus of ureter; E66.9 Obesity, unspecified; Z68.41 Body mass index [BMI] 40.0-44.9, adult; Z86.16 Personal history of COVID-19
CPT/HCPCS: 36415; 74176; 80053; 81000; 83690; 85007; 85027